=== PATIENT | female | born 1960 | race Caucasian/White ===

== ENCOUNTER → 2019-04-24 08:12 | Outpatient (CLI) | payer OTHER, BC, SELFPAY ==
--- NOTE | 2019-04-24 08:16 | BI_ITS ---
MAMMOGRAPHY - BILATERAL SCREENING REASON FOR EXAM: Female, 58 years old. Routine annual screening examination. PERTINENT HISTORY: Non-contributory. History of remote bilateral breast aspirations. TECHNIQUE: Digital bilateral breast jose f (3D mammographic acquisition) in the CC and MLO projections. 2-D mediolateral oblique (MLO) and craniocaudad (CC) views of both breasts were obtained. CAD: Full Field Digital Mammography with Computer Added Detection was performed. COMPARISON: Comparison is made with prior study dated April 10, 2016 and February 19, 2015. FINDINGS: Breast Composition: The breasts are extremely dense, which lowers the sensitivity of mammography. There are no dominant masses or suspicious calcifications. No other significant abnormalities are identified. There has been no significant change since the prior study. BI/SCREEN MAMM (CAD) W/JOSE F BILAT IMPRESSION: Stable bilateral screening mammogram. Yearly follow-up mammogram recommended. (A) ASSESSMENT CATEGORY: BIRADS Category 1: Negative. A letter regarding these results will be sent to the patient by the facility within 30 days. Approximately 10% of breast cancers are not detected by mammography. A normal mammogram should not delay biopsy of a clinically suspicious abnormality. [id number] Electronically Signed: Cricket Rinaldi, at 9:21 EDT , Service support ,
== END ==
PROVIDERS: Family Provider Family Medicine; PCP Family Medicine; Referring Provider Obstetrics & Gynecology; Visit Provider Obstetrics & Gynecology
DX: Z12.31 Encounter for screening mammogram for malignant neoplasm of breast (principal)
CPT/HCPCS: 77063; 77067

== ENCOUNTER → 2020-09-03 | Outpatient (CLI) | payer OTHER, BC, SELFPAY ==
[2019-10-16 09:49] VITALS: BMI 16.4
--- NOTE | 2020-09-03 07:38 | BI_ITS ---
MAMMOGRAPHY - BILATERAL SCREENING REASON FOR EXAM: Female, 60 years old. Routine annual screening examination. PERTINENT HISTORY: Non-contributory. TECHNIQUE: Digital bilateral breast jose f (3D mammographic acquisition) in the CC and MLO projections. 2-D mediolateral oblique (MLO) and craniocaudad (CC) views of both breasts were obtained. CAD: Full Field Digital Mammography with Computer Added Detection was performed. COMPARISON: Comparison is made with prior study dated 04/24/2019 and 04/10/2016. FINDINGS: Breast Composition: The breasts are extremely dense, which lowers the sensitivity of mammography. There are no dominant masses or suspicious calcifications. No other significant abnormalities are identified. There has been no significant change since the prior study. BI/SCREEN MAMM (CAD) W/JOSE F BILAT IMPRESSION: Stable bilateral screening mammogram. Yearly follow-up mammogram recommended. (A) ASSESSMENT CATEGORY: BIRADS Category 1: Negative. A letter regarding these results will be sent to the patient by the facility within 30 days. Approximately 10% of breast cancers are not detected by mammography. A normal mammogram should not delay biopsy of a clinically suspicious abnormality. [id number] Electronically Signed: Cricket Rinaldi, at 8:46 EDT , Service support ,
== END | disposition home or self-care (01) ==
LOC: OPBI 07:38
PROVIDERS: PCP Family Medicine; Referring Provider Obstetrics & Gynecology; Visit Provider Obstetrics & Gynecology
DX: Z12.31 Encounter for screening mammogram for malignant neoplasm of breast (principal)
CPT/HCPCS: 77063; 77067

== ENCOUNTER → 2021-09-05 07:31 | Outpatient (CLI) | payer OTHER, BC, SELFPAY ==
--- NOTE | 2021-09-05 07:35 | BI_ITS ---
MAMMOGRAPHY - BILATERAL SCREENING REASON FOR EXAM: Female, 61 years old. Routine annual screening examination. PERTINENT HISTORY: Non-contributory. TECHNIQUE: Digital bilateral breast jose f (3D mammographic acquisition) in the CC and MLO projections. 2-D mediolateral oblique (MLO) and craniocaudad (CC) views of both breasts were obtained. CAD: Full Field Digital Mammography with Computer Added Detection was performed. COMPARISON: Comparison is made with prior examination dated 09/03/2020 and 04/24/2019. FINDINGS: Breast Composition: The breasts are extremely dense, which lowers the sensitivity of mammography. There are no dominant masses or suspicious calcifications. No other significant abnormalities are identified. There has been no significant change since the prior study. BI/SCRN MAMM (CAD)W/JOSE F BILAT IMPRESSION: Stable bilateral screening mammogram. Yearly follow-up mammogram recommended. (A) ASSESSMENT CATEGORY: BIRADS Category 1: Negative. A letter regarding these results will be sent to the patient by the facility within 30 days. Approximately 10% of breast cancers are not detected by mammography. A normal mammogram should not delay biopsy of a clinically suspicious abnormality. [id number] Electronically Signed: Cricket Rinaldi MD at 10:03 EDT , Service support ,
== END ==
PROVIDERS: PCP Family Medicine; Referring Provider Obstetrics & Gynecology; Visit Provider Obstetrics & Gynecology
DX: Z12.31 Encounter for screening mammogram for malignant neoplasm of breast (principal)
CPT/HCPCS: 77063; 77067

== ENCOUNTER → 2022-12-01 | Outpatient (CLI) | payer OTHER, BC, SELFPAY ==
--- NOTE | 2022-12-01 07:45 | BI_ITS ---
MAMMOGRAPHY - BILATERAL SCREENING REASON FOR EXAM: Female, 62 years old. Routine annual screening examination. PERTINENT HISTORY: Non-contributory. History of prior bilateral breast aspirations. TECHNIQUE: Digital bilateral breast jose f (3D mammographic acquisition) in the CC and MLO projections. 2-D mediolateral oblique (MLO) and craniocaudad (CC) views of both breasts were obtained. CAD: Full Field Digital Mammography with Computer Added Detection was performed. COMPARISON: Comparison is made with prior study dated 09/05/2021 and 09/03/2020. FINDINGS: Breast Composition: The breasts are extremely dense, which lowers the sensitivity of mammography. There are no dominant masses or suspicious calcifications. No other significant abnormalities are identified. There has been no significant change since the prior study. BI/SCRN MAMM (CAD)W/JOSE F BILAT IMPRESSION: Stable bilateral screening mammogram. Yearly follow-up mammogram recommended. (A) ASSESSMENT CATEGORY: BIRADS Category 1: Negative. A letter regarding these results will be sent to the patient by the facility within 30 days. Approximately 10% of breast cancers are not detected by mammography. A normal mammogram should not delay biopsy of a clinically suspicious abnormality. [id number] Electronically Signed: Cricket Rinaldi MD at 9:14 EST ,
== END | disposition home or self-care (01) ==
LOC: OPBI 07:43
PROVIDERS: PCP Physician Assistant; Referring Provider Obstetrics & Gynecology; Visit Provider Obstetrics & Gynecology
DX: Z12.31 Encounter for screening mammogram for malignant neoplasm of breast (principal)
CPT/HCPCS: 77063; 77067

== ENCOUNTER 2023-04-30 06:25 | Day surgery (SDC) | payer OTHER, BC, SELFPAY ==
[2023-04-30] VITALS (7 sets, daily range): BP systolic 99–131; BP diastolic 65–91; PULSE 70–119; RESP 14–18; TEMP 36.3–37; O2SAT 96–100; BMI 15.7
[2023-04-30] MEDS: Lactated Ringers 1,000 ML 15 ML IV (06:51)
--- NOTE | 2023-04-30 06:56 | PCM.HP.BLA ---
History and Physical Date of Admission: 04/30/23 Visit Reasons:?COLONOSCOPY Chief Complaint: colonoscopy consult Allergies Sulfa (Sulfonamide Antibiotics) Allergy (Mild, Verified 03/04/23 08:22) felt warm, itchy PFSH Medical History? Chronic diarrhea COVID-19 Fibrocystic breast history of bowel obstruction Right arm fracture Surgical History? S/P abdominal hysterectomy s/p ileus removed S/P tonsillectomy Family History? Mother Parkinsons diseaseGrandfather Kidney disease Social History? Smoking Status:? Never smoker alcohol intake:? never substance use type:? does not use caffeine:? No what type of physical activity do you participate in:? walking frequency:? 5-6 times per week seatbelt use:? always do you feel safe at home:? Yes additional social history:? 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 ? HPI HPI HPI: 62-year-old female presents to discuss screening colonoscopy.? She has chronic diarrhea secondary to a small bowel obstruction with subsequent resection of small bowel.? She is also noted a previous history of a hysterectomy.? Fortunately she has no symptoms.? No abdominal pain.? No bright red blood per rectum or melena.? She continues to have diarrhea and she has to adjust her diet to accommodate.? She is always been low in weight and she has to work hard to keep weight on.? She otherwise feels stable.? She did have COVID last year and but feels that most of her symptoms have resolved although she does keep her head of bed slightly elevated.? No history of DVT. ROS General General: No weight change, appetite, fatigue, colon cancer, breast cancer or weakness HEENT HEENT: No difficulty swallowing, eye injury, eye surgery, swollen glands or hoarseness Endo Endocrine: No thyroid disease, diabetes mellitus, thyroid cancer, Hair loss, heat intolerance or cold intolerance Skin Skin: No rash or changing moles Breast Breast: No left breast lump, right breast lump, nipple discharge, breast pain, abnormal mammogram, abnormal US or breast enlargement Musc Musculoskeletal: No back problems, arthritis, rheumatoid arthritis, gout or joint pain Cardio Cardiovascular: No murmur, pacemaker, heart disease, atrial fibrillation, high blood pressure, heart attack, heart stent, palpitations, shortness of breat with exertion or chest pain Psych Psychiatric: No depression, anxiety or hearing voices Resp Respiratory: No shortness of breath, No sleep apnea, No cough, No COPD, No asthma, No emphysema and No wheezing Gastro Gastrointestinal: No abdominal pain, No nausea or vomiting, No diarrhea, No constipation, No blood in stool, No acid reflux, Yes hemorrhoids, No ulcers, No gallbladder problem and No black,tarry stools Matt Hematologic: No blood thinners, No blood disorders, No bleeding, No anemia and No blood clots Neuro Neurologic: No system reviewed and no additional complaints, except as documented, No as per HPI, No abnormal gait, No abnormal hearing, No abnormal movements, No abnormal speech, No behavioral changes, No burning sensations, No confusion, No convulsions, No disequilibrium, No dizziness, No localized weakness, No frequent falls, No headache(s), No lack of coordination, No loss of vision, No memory loss, No numbness, No other visual disturbances, No radicular pain, No restless legs, No sensory deficit, No syncope, No tingling, No tremor(s), No weakness and No other Exam Const General: cooperative, healthy appearing, comfortable and no acute distress Nutritional Appearance: underweight [facility] Head: normal to inspection Eyes General: appearance normal, both eyes and all related structures Resp Effort & Inspection: normal respiratory effort Auscultation: clear to auscultation bilaterally Cardio Rate: regular rate Rhythm: regular rhythm GI Palpation: soft and no hepatosplenomegaly Musc Cervical Spine: normal cervical lordosis Skin General: no rashes or lesions noted Neuro General: patient alert, patient awake and patient oriented x3 Assessment and Plan Assessment and Plan (1) Screening for intestinal cancer: ?Status:?Acute ?Plan: 62-year-old female is due for screening colonoscopy.? 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 She does have difficulty keeping weight in place.? She does take medication Lomotil to help slow her intestine.? When she stops that medication and takes her bowel prep she does have significant diarrhea results.? We will therefore limit her to 1 day clear liquids and a 1 day bowel prep.? We will utilize monitored anesthesia care.? She is extraordinarily slender and likely will be a more challenging colonoscopy due to tortuosity.? She is aware of technique, benefit, risk, alternatives.? We will schedule procedure at her discretion.? I appreciate the ongoing option of assisting with her surgical care. Copy: ERENDIRA Waller M.D., F.A.C.S I have examined the patient and the H&P has been reviewed. There are no clinical changes since date of exam. Warner Gutierrez M.D., F.A.C.S.
--- NOTE | 2023-04-30 08:04 | OP.CCLET_ITS ---
04/30/2023 Germania Cordero Re : Colonoscopy procedure for Susana Zavaleta Dear Gil This procedure was performed on Sunday, April 30, 2023. My impressions and recommendations are as follows: Impressions : - Decreased sphincter tone, non-thrombosed external hemorrhoids, non-thrombosed internal hemorrhoids and internal hemorrhoids that prolapse with straining, but spontaneously regress to the resting position (Grade II) found on digital rectal exam. - Patent end-to-end ileo-colonic anastomosis, characterized by healthy appearing mucosa. - The examination was otherwise normal. - No specimens collected. Recommendations : - Discharge patient to home. - Resume previous diet. - Continue present medications. - Repeat colonoscopy in 10 years for screening purposes. My findings are described in the full procedure note, which is enclosed. If I can be of further assistance, please feel free to contact me at Doctor phone number(s): Work: . Sincerely, Warner Gutierrez MD 04/30/2023 8:04:02 AM This report has been signed electronically.
--- NOTE | 2023-04-30 08:04 | OP.COLON_ITS ---
Patient Name: Susana Zavaleta Procedure Date: 04/30/2023 7:28 AM Date of : 1960 Age: 62 Procedure: Colonoscopy Indications: Screening for colorectal malignant neoplasm Providers: Warner Gutierrez MD Referring MD: Warner Gutierrez MD Medicines: See the Anesthesia note for documentation of the administered medications Patient Profile: Last Colonoscopy: 10 years ago. Complications: No immediate complications. Procedure: Pre-Anesthesia Assessment: - Prior to the procedure, a History and Physical was performed, and patient medications and allergies were reviewed. The patient's tolerance of previous anesthesia was also reviewed. The risks and benefits of the procedure and the sedation options and risks were discussed with the patient. All questions were answered, and informed consent was obtained. Prior Anticoagulants: The patient has taken no previous anticoagulant or antiplatelet agents. ASA Grade Assessment: II - A patient with mild systemic disease. After reviewing the risks and benefits, the patient was deemed in satisfactory condition to undergo the procedure. After I obtained informed consent, the scope was passed under direct vision. Throughout the procedure, the patient's blood pressure, pulse, and oxygen saturations were monitored continuously. The adult colonoscope was introduced through the anus and advanced to the ileocolonic anastomosis. The patient tolerated the procedure well. The quality of the bowel preparation was good. Ileocolonic anastomosis were photographed. Scope In: 7:36:27 AM Scope Withdrawal Time 0 hours 5 minutes 59 seconds Scope Out: 7:59:27 AM Total Procedure Duration Time 0 hours 23 minutes 0 seconds Findings: The digital rectal exam findings include decreased sphincter tone, non-thrombosed external hemorrhoids, non-thrombosed internal hemorrhoids and internal hemorrhoids that prolapse with straining, but spontaneously regress to the resting position (Grade II). There was evidence of a prior end-to-end ileo-colonic anastomosis in the proximal ascending colon. This was patent and was characterized by healthy appearing mucosa. The exam was otherwise without abnormality. Impression: - Decreased sphincter tone, non-thrombosed external hemorrhoids, non-thrombosed internal hemorrhoids and internal hemorrhoids that prolapse with straining, but spontaneously regress to the resting position (Grade II) found on digital rectal exam. - Patent end-to-end ileo-colonic anastomosis, characterized by healthy appearing mucosa. - The examination was otherwise normal. - No specimens collected. Recommendation: - Discharge patient to home. - Resume previous diet. - Continue present medications. - Repeat colonoscopy in 10 years for screening purposes. Procedure Code(s): --- Professional --- 92875, Colonoscopy, flexible; diagnostic, including collection of specimen(s) by brushing or washing, when performed (separate procedure) Diagnosis Code(s): --- Professional --- Z12.11, Encounter for screening for malignant neoplasm of colon K62.89, Other specified diseases of anus and rectum Z98.0, Intestinal bypass and anastomosis status K64.1, Second degree hemorrhoids K64.4, Residual hemorrhoidal skin tags CPT copyright 2017 [employer]. All rights reserved. The codes documented in this report are preliminary and upon national recruiter review may be revised to meet current compliance requirements. Warner Gutierrez MD 04/30/2023 8:04:02 AM This report has been signed electronically. Number of Addenda: 0 Note Initiated On: 04/30/2023 7:28 AM
== END 2023-04-30 09:22 | disposition home or self-care (01) ==
LOC: EN 06:26 → AC 06:27
PROVIDERS: PCP Physician Assistant; Referring Provider Physician Assistant; Visit Provider Surgery
PROC: 0DJD8ZZ Inspection of Lower Intestinal Tract, Via Natural or Artificial Opening Endoscopic (ICD-10-PCS; CPT 45378; principal; 2023-04-30 07:25)
DX: Z12.11 Encounter for screening for malignant neoplasm of colon (principal); K64.4 Residual hemorrhoidal skin tags; K64.1 Second degree hemorrhoids; Z98.0 Intestinal bypass and anastomosis status
CPT/HCPCS: 45378; J7120; J2405

== ENCOUNTER → 2023-12-02 | Outpatient (CLI) | payer OTHER, BC, SELFPAY ==
--- NOTE | 2023-12-02 07:51 | BI_ITS ---
MAMMOGRAPHY - BILATERAL SCREENING REASON FOR EXAM: Female, 63 years old. Routine annual screening examination. PERTINENT HISTORY: Non-contributory. History of prior bilateral breast aspirations. TECHNIQUE: Digital bilateral breast jose f (3D mammographic acquisition) in the CC and MLO projections. 2-D mediolateral oblique (MLO) and craniocaudad (CC) views of both breasts were obtained. CAD: Full Field Digital Mammography with Computer Added Detection was performed. COMPARISON: Comparison is made with prior study dated May 31, 2023 and September 05, 2021. FINDINGS: Breast Composition: The breasts are extremely dense, which lowers the sensitivity of mammography. There are no dominant masses or suspicious calcifications. Stable calcifications in the upper outer quadrant of the left breast. No other significant abnormalities are identified. There has been no significant change since the prior study. BI/SCRN MAMM (CAD)W/JOSE F BILAT IMPRESSION: Stable bilateral screening mammogram. Yearly follow-up mammogram recommended. (A) ASSESSMENT CATEGORY: BIRADS Category 2: Benign. A letter regarding these results will be sent to the patient by the facility within 30 days. Approximately 10% of breast cancers are not detected by mammography. A normal mammogram should not delay biopsy of a clinically suspicious abnormality. [id number] Electronically Signed: Cricket Rinaldi MD at 8:59 EST ,
--- OUTSIDE RECORDS SUMMARY | 2023-12-02 08:14 | XMS RPT_ITS | CCD ---
Author Name Unknown Address [address] [place] [address] Organization [facility] Care Team Providers Care Sole Sewer Hand Name Role Phone Germania Cordero PA-C Primary Care Provider [phone] Germania CORDERO Primary Care Unavailable Germania CORDERO Referring Unavailable Germania CORDERO Attending Germania Javier Primary Care Unavailable Germania CORDERO Referring Unavailable Germania CORDERO Attending Unavailable Germania CORDERO Primary Care Unavailable JAZMÍN VILLASEÑOR Referring Unavailable Germania CORDERO Primary Care Unavailable JAZMÍN VILLASEÑOR Attending Unavailable Germania Cordero PA-C Primary Care Provider [phone] Allergies Allergy Classification Reported Allergen(s) Allergy Type Date of Onset Reaction(s) Facility (16 sources) Sulfonamides (Antibiotic); Translations: [SULFA (SULFONAMIDE ANTIBIOTICS)] Propensity to adverse reactions 5 [facility] Work Phone: Medications Current Medications Medication Drug Class(es) Dates Sig (Normalized) Sig (Original) atropine sulfate 0.025 mg / diphenoxylate hydrochloride 2.5 mg oral tablet (19 sources) Anticholinergic, Cholinergic Muscarinic Antagonist, Antidiarrheal Start: 12-10-2021 End: 03-21-2024 take 1 tablet by mouth once at bedtime diphenoxylate-at ropine (LOMOTIL) 2.5-0.025 mg per tablet Indications: History of surgical removal of terminal ileum TAKE ONE TABLET BY MOUTH BEFORE MEALS AND AT BEDTIME 360 tablet 5 09/23/2023 03/21/2024 Active Completed/Discontinued Medications Medication Drug Class(es) Dates Sig (Normalized) Sig (Original) Blood Pressure Monitor (15 sources) Start: 11-18-2021 Blood Pressure Monitor 1 Each once daily as needed. 1 Each 0 11/18/2021 Active Problems Active Problems Problem Classification Problem Date Documented Da te Episodic/Chronic Crushing injury or internal injury (1 source) Injury of ileum; Translations: [Unspecified injury of other part of small intestine, subsequent encounter] Episodic Esophageal disorders (18 sources) Gastroesophageal reflux disease; Translations: [Gastro-esophageal reflux disease without esophagitis] Onset: 2 01-15-2012 Chronic Esophageal disorders (1 source) Esophageal disorders; Translations: [Gastroesophageal reflux disease with esophagitis without hemorrhage] Onset: 2 Nutritional deficiencies (1 source) Vitamin D deficiency; Translations: [Vitamin D deficiency, unspecified] 07-15-2023 Chronic Osteoporosis (20 sources) Osteoporosis; Translations: [Other osteoporosis without current pathological fracture] Onset: 2 12-17-2021 Chronic Other circulatory disease (1 source) Elevated blood-pressure reading without diagnosis of hypertension; Translations: [Elevated blood-pressure reading, without diagnosis of hypertension] Episodic Other diseases of veins and lymphatics (1 source) Venous insufficiency (chronic) (peripheral); Translations: [Venous (peripheral) insufficiency] Onset: 3 Episodic Other gastrointestinal disorders (1 source) Irritable bowel syndrome with diarrhea; Translations: [Irritable bowel syndrome with diarrhea] Chronic Other gastrointestinal disorders (1 source) Intestinal malabsorption, unspecified; Translations: [Vitamin B12 deficiency due to intestinal malabsorption] Onset: 2 Chronic Other gastrointestinal disorders (1 source) Functional diarrhea; Translations: [Functional diarrhea] Episodic Other injuries and conditions due to external causes (1 source) Injury of right hand; Translations: [Unspecified injury of right wrist, hand and finger(s), initial encounter] Episodic Other screening for suspected conditions (not mental disorders or infectious disease) (2 sources) Patient encounter status; Translations: [Encounter for screening mammogram for malignant neoplasm of breast] Episodic Residual codes; unclassified (20 sources) History of excision of intestinal structure; Translations: [Other specified postprocedural states] Onset: 1 Episodic Superficial injury; contusion (1 source) Right wrist contusion; Translations: [Contusion of right wrist, initial encounter] Episodic Past or Other Problems Problem Classification Problem Date Documented Date Episodic/Chronic E Codes: Fall (2 sources) Fall; Translations: [Unspecified fall, initial encounter] Onset: 12-03-2022 Episodic Noninfectious gastroenteritis (19 sources) Chronic diarrhea; Translations: [Noninfective gastroenteritis and colitis, unspecified] Onset: 06-10-2021 06-10-2021 Episodic Nutritional deficiencies (18 sources) Cobalamin deficiency; Translations: [Deficiency of other specified B group vitamins] Onset: 06-29-2022 Episodic Other diseases of veins and lymphatics (16 sources) Peripheral venous insufficiency; Translations: [Venous insufficiency (chronic) (peripheral)] Onset: 07-14-2006 07-14-2006 Episodic Other injuries and conditions due to external causes (1 source) Unspecified injury of right wrist, hand and finger(s), initial encounter; Translations: [Hand injury, right, initial encounter] Onset: 12-03-2022 Episodic Other nutritional; endocrine; and metabolic disorders (1 source) Weight loss; Translations: [Abnormal weight loss] Onset: 01-23-2009 01-23-2009 Episodic Other nutritional; endocrine; and metabolic disorders (18 sources) Underweight; Translations: [Underweight] Onset: 05-01-2022 Episodic Other nutritional; endocrine; and metabolic disorders (1 source) Underweight; Translations: [Underweight] Onset: 05-01-2022 Episodic Residual codes; unclassified (1 source) Other specified postprocedural states; Translations: [History of surgical removal of terminal ileum] Onset: 06-10-2021 Episodic Residual codes; unclassified (1 source) Acquired absence of other specified parts of digestive tract; Translations: [History of surgical removal of terminal ileum] Onset: 06-10-2021 Episodic Results Test Name Value Interpretation Reference Range Facil ity Vital Signs Date Time Vital Sign Value Performing Clinician Sarahyi aleksey 07-15-2023 08:08-0400 Body temperature 98.29 [degF] ASHLEIGH Cordero PA-C Work Phone: [facility] 07-15-2023 08:08-0400 Body weight 47.63 kg ASHLEIGH Cordero PA-C Work Phone: [facility] 07-15-2023 08:08-0400 Diastolic blood pressure 62 mm[Hg] ASHLEIGH Cordero PA-C Work Phone: [facility] 07-15-2023 08:08-0400 Heart rate 78 /min NA Cordero PA-C Work Phone: [facility] 07-15-2023 08:08-0400 SaO2% (BldA) [Mass fraction] 99 % NA Cordero PA-C Work Phone: [facility] 07-15-2023 08:08-0400 Systolic blood pressure 112 mm[Hg] NA Cordero PA-C Work Phone: [facility] 01-11-2023 08:00-0500 Body weight 47.63 kg NA Cordero PA-C Work Phone: [facility] 01-11-2023 08:00-0500 Diastolic blood pressure 74 mm[Hg] NA Cordero PA-C Work Phone: [facility] 01-11-2023 08:00-0500 Heart rate 74 /min NA Cordero PA-C Work Phone: [facility] 01-11-2023 08:00-0500 Respiratory rate 16 /min NA Cordero PA-C Work Phone: [facility] 01-11-2023 08:00-0500 SaO2% (BldA) [Mass fraction] 99 % NA Cordero PA-C Work Phone: [facility] 01-11-2023 08:00-0500 Systolic blood pressure 128 mm[Hg] NA Cordero PA-C Work Phone: [facility] 12-03-2022 11:33-0500 Body weight 48.08 kg Jazmín Villaseñor MD Work Phone: [facility] 12-03-2022 11:33-0500 Diastolic blood pressure 72 mm[Hg] Jazmín Villaseñor MD Work Phone: [facility] 12-03-2022 11:33-0500 Heart rate 70 /min Jazmín Villaseñor MD Work Phone: [facility] 12-03-2022 11:33-0500 Respiratory rate 16 /min Jazmín Villaseñor MD Work Phone: [facility] 12-03-2022 11:33-0500 SaO2% (BldA) [Mass fraction] 100 % Jazmín Villaseñor MD Work Phone: [facility] 12-03-2022 11:33-0500 Systolic blood pressure 128 mm[Hg] Jazmín Villaseñor MD Work Phone: [facility] 07-14-2022 08:49-0400 Body temperature 98.71 [degF] NA Cordero PA-C Work Phone: [facility] 07-14-2022 08:49-0400 Body weight 47.54 kg NA Cordero PA-C Work Phone: [facility] 07-14-2022 08:49-0400 Diastolic blood pressure 78 mm[Hg] NA Cordero PA-C Work Phone: [facility] 07-14-2022 08:49-0400 Heart rate 78 /min NA Cordero PA-C Work Phone: [facility] 07-14-2022 08:49-0400 Respiratory rate 18 /min NA Cordero PA-C Work Phone: [facility] 07-14-2022 08:49-0400 SaO2% (BldA) [Mass fraction] 97 % NA Cordero PA-C Work Phone: [facility] 07-14-2022 08:49-0400 Systolic blood pressure 142 mm[Hg] NA Cordero PA-C Work Phone: [facility] 05-01-2022 09:24-0400 Body height 169.4 cm Maxim Singh MD Work Phone: [facility] 05-01-2022 09:24-0400 Body weight 47.63 kg Maxim Singh MD Work Phone: [facility] 05-01-2022 09:24-0400 Diastolic blood pressure 75 mm[Hg] Maxim Singh MD Work Phone: [facility] 05-01-2022 09:24-0400 Heart rate 68 /min Maxim Singh MD Work Phone: [facility] 05-01-2022 09:24-0400 Respiratory rate 16 /min Maxim Singh MD Work Phone: [facility] 05-01-2022 09:24-0400 SaO2% (BldA) [Mass fraction] 100 % Maxim Singh MD Work Phone: [facility] 05-01-2022 09:24-0400 Systolic blood pressure 158 mm[Hg] Maxim Singh MD Work Phone: [facility] Encounters Encounter Date Encounter Type Care Provider Facility Start: 09-22-2023 Judy Mckeon Sea on PA-C Work Phone: [facility] Procedures Date Procedure Procedure Detail Performing Clinician Start: 12-01-2022 Mammography Jazmín Hood MD Work Phone: Start: 07-14-2022 Adult depression scr eening assessment NA Cordero PA-C Work Phone: Start: 09-05-2021 Mammography NA Cordero PA-C Work Phone: Start: 06-10-2021 Adult depression scr eening assessment NA Cordero PA-C Work Phone: Start: 07-01-2012 Colonoscopy NA Cordero PA-C Work Phone: Start: 07-21-2006 Lipid 1996 panel - S alice or Plasma NA Cordero PA-C Work Phone: Plan of Treatment Date Care Activity Detail Author Start: 12-12-2028 Urine microalbumin profile [facility] Start: 06-25-2025 DIABETES SCREEN DIABETES SCREEN [facility] Start: 06-25-2025 Diabetes Screening Diabetes Screenin g [facility] Start: 05-07-2024 Influenza vaccination [facility] Immunizations Immunization Date Immunization Notes Care Provider Fa tanya 12-12-2018 tetanus toxoid, redu vinny diphtheria toxoid, and acellular pertussis vaccine, adsorbed NA Cordero PA-C Work Phone: [facility] 12-12-2018 influenza virus vacc ine, unspecified formulation NA Cordero PA-C Work Phone: [facility] 11-15-2003 diphtheria and tetan us toxoids, adsorbed for pediatric use NA Gil DEBBIEFreyaTrey Work Phone: [facility] Payers Date Payer Category Payer Private Health Insurance EHP AET NA EHP PLUS STAFF/NON STAFF / EHP Plus [facility] [id number] 2021-Present [address] [place] [address] PPO [id number] 2021 Private Health Insurance [id number] 2021 Unknown [id number] 2018 Unknown [employer] PPO OOS [id number] 2018-Present [phone] [address] [place] [address] PPO [id number] 2018 Unknown [id number] 2003 Unknown [id number] Social History Date Type Detail Facility Start: 10-02-2011 Tobacco smoking stat [facility] Never smoked tobacco [facility] Work Phone: Start: 11-18-2021 End: 07-15-2023 Alcohol intake Current non-drinker of alcohol (finding) [facility] Start: 1960 Sex Assigned At Not on file [facility] Start: 10-02-2011 Tobacco use and exposure Smokeless tobacco non-user [facility] Start: 06-12-2022 End: 07-14-2022 Exposure to SARS-CoV-2 (event) Not sure [facility] Start: 12-01-2022 End: 07-15-2023 History of Social function [facility] Start: 12-01-2022 End: 07-15-2023 Tobacco use panel [facility] Adult Depression Screening Assessment 0 [facility] Clinical Notes 07-01-2012 to 09-23-2023 Telephone Encounter - Cassidy Rivera LPN - 09/23/2023 8:24 AM ESTTelephone Encounter - Peri Castorena - 09/22/2023 3:02 PM Germania Kat PA-C - 07/15/2023 8:00 AM EDT Note Date & Type Note Facility 09-23-2023 Miscellaneous Notes Patient has been identified by name and date of : Yes, Provider LAURO Waller Date 09/23/23 Time 8:30 am Patient phones for refill(s): Requested Prescriptions Pending Prescriptions Disp Refills diphenoxylate-atropine (LOMOTIL) 2.5-0.025 mg per tablet 360 tablet 5 Sig: TAKE ONE TABLET BY MOUTH BEFORE MEALS AND AT BEDTIME Date of last office visit in primary care: 07/15/23 Date of next office visit in primary care: 07/17/24 Last 2 Encounter Wt Readings: Date: Wt: 07/15/2023 47.6 kg (105 lb) 01/11/2023 47.6 kg (105 lb) Previous labs/tests for medication: Not applicable Thank you. Cassidy Rivera LPN. Patient has been identified by name and date of : Yes Requested Prescriptions Pending Prescriptions Disp Refills diphenoxylate-atropine (LOMOTIL) 2.5-0.025 mg per tablet 360 tablet 5 Sig: TAKE ONE TABLET BY MOUTH BEFORE MEALS AND AT BEDTIME RX INSTRUCTIONS: Patient aware RX will be sent to pharmacy. No need to notify patient. Peri Hicks documented in this encounter [facility] 07-15-2023 Note HNO ID: [id number] Author: Germania Cordero PA-C Service: ? Author Type: Physician Pathology Secretary/Transcriptionist Type: Progress Notes Filed: 07/15/2023 12:37 PM Note Text: 62 year old female with c/o here for routine History of surgical removal of terminal ileum (primary encounter diagnosis) Vitamin b12 deficiency Underweight Chronic diarrhea Gastroesophageal reflux disease with esophagitis without hemorrhage Current medication: Lomotil-atropine 2.5-0.25mg 1 tab before meals and HS B12 1000u daily a few times a week Current symptoms: normal for me , nothing unusual. Last Mg level if on PPI chronically: N/A. Heartburn is controlled: Yes. Dysphagia: No. Bloody or black stools: No. No rectal bleeding. Bowel changes: 75-80% fairly solid if follows rules . Occasional diarrhea, no incontinence. Last EGD and/or colonoscopy: Records retrieved and reviewed from [facility] 04/30/[address] Howie Gutierrez: grade II non-thrombosed IH, EH, end-end anastamosis WNL. No specimens. 05/24/2012 barium swallow WNL. Component Latest Ref Rng AND Units 06/25/2022 Protein, Total 6.3 - 8.0 g/dL 7.0 Albumin 3.9 - 4.9 g/dL 4.7 Calcium 8.5 - 10.2 mg/dL 9.4 Bilirubin, Total 0.2 - 1.3 mg/dL 0.4 Alkaline Phosphatase 34 - 123 U/L 93 AST 13 - 35 U/L 20 ALT 7 - 38 U/L 12 Glucose 74 - 99 mg/dL 145 (H) BUN 7 - 21 mg/dL 21 Creatinine 0.58 - 0.96 mg/dL 0.82 Sodium 136 - 144 mmol/L 140 Potassium 3.7 - 5.1 mmol/L 3.7 Chloride 97 - 105 mmol/L 102 CO2 22 - 30 mmol/L 24 Anion Gap 9 - 18 mmol/L 14 eGFR >=60 mL/min/1.73mA? 80 Vitamin D 25 Hydroxy 31.0 - 80.0 ng/mL 50.7 PTH, Intact 15 - 65 pg/mL 57 Vitamin B12 232 - 1,245 pg/mL 237 TSH 0.270 - 4.200 mIU/L 1.780 Free T4 0.9 - 1.7 ng/dL 1.1 Venous (peripheral) insufficiency Stands all day long Swelling by end of the day. Walks on breaks. Osteoporosis 05/01/[address] Singh: patient declined Forteo, has reservations about medication side effects. Has also talked about Prolia. FAMILY HISTORY Problem Relation Age of Onset Osteoporosis Mother other (parkinsons) Mother other (renal disease) Maternal Grandfather PAST MEDICAL HISTORY Diagnosis Date Diarrhea Dyskinesia of esophagus Esophageal reflux History of surgical removal of terminal ileum 06/10/2021 Loss of weight PAST SURGICAL HISTORY Procedure Laterality Date BREAST RIGHT FINE NEEDLE ASPIRATION 09/02/05 Right x 3 cysts COLONOSCOPY FLX DX W/COLLJ SPEC WHEN PFRMD 07/01/2012 Colonoscopy repeat 10 years ENTRC RESCJ SMALL INTESTINE 1 RESCJ AND ANAST 10/14/06 ESOPHAGOGASTRODUODENOSCOPY TRANSORAL DIAGNOSTIC 01/23/2009 EGD ESOPHAGOGASTRODUODENOSCOPY TRANSORAL DIAGNOSTIC 07/01/2012 EGD INSJ NON-TUNNELED CENTRAL VENOUS CATH AGE 3 YR/> 10/14/06 TONSILLECTOMY PRIMARY/SECONDARY Tonsillectomy TOTAL ABDOMINAL HYSTERECT W/WO RMVL TUBE OVARY Hysterectomy, appendectomy(ovaries remain) Social History Tobacco Use Smoking status: Never Smokeless tobacco: Never Substance Use Topics Alcohol use: No Drug use: No ACTIVE PROBLEM LIST Unspecified Venous (Peripheral) Insufficiency Gerd (Gastroesophageal Reflux Disease) History of Surgical Removal of Terminal Ileum Chronic Diarrhea Osteoporosis Underweight Vitamin B12 deficiency Current Outpatient Medications Medication Sig Dispense Refill diphenoxylate-atropine (LOMOTIL) 2.5-0.025 mg per tablet TAKE ONE TABLET BY MOUTH BEFORE MEALS AND AT BEDTIME 360 tablet 5 cyanocobalamin (VITAMIN B-12) 1,000 mcg tab Take 1 tablet by mouth once daily. cholecalciferol (VITAMIN D3) 1,000 unit tab tablet Take 1 tablet by mouth once daily. Blood Pressure Monitor 1 Each once daily as needed. 1 Each 0 THERAPEUTIC MULTIVITAMIN TAB Take one(1) tablet daily. 0 No current facility-administered medications for this visit. LIPID SCREEN due on 07/21/2011 COLORECTAL CANCER SCREENING due on 07/01/2022 DEPRESSION ASSESSMENT Never done INFLUENZA(1) due on 07/09/2023 EXAM: BP 112/62 Pulse 78 Temp 36.8 ?C (98.3 ?F) (Tympanic) Wt 47.6 kg (105 lb) SpO2 99% BMI 16.60 kg/m? Pleasant thin adul woman in no acute distress. Alert and oriented all spheres. Normal affect and cognition. Speech normal. No deficits to learning or comprehension. Skin warm, dry, pink to lips and nailbeds. Normal turgor. Respirations regular and unlabored. HEENT: NCAT. No scleral icterus or conjunctival injection. TM's clear. Nose and oropharynx free from injection or lesion. Oral membranes moist and pink. No cervical lymph nodes. Thyroid non-tender, no masses, or enlargement. Carotids pulses 2+/4+ without bruits. No JVD with HOB at 30 degrees. Chest is normal shape. Lungs are clear to all moya with good air exchange through out. HRRR without murmur or gallop. No lifts, heaves, or rubs. Abdomen: active bowel sounds throughout, soft, nontender, no masses or organomegaly. No CVAT. Extrem: no clubbing or cyanosis. Edema: none. Extremities are warm and (more content not included)... [facility] 07-15-2023 History of Presen t illness Narrative 62 year old female with c/o here for routine History of surgical removal of terminal ileum (primary encounter diagnosis) Vitamin b12 deficiency Underweight Chronic diarrhea Gastroesophageal reflux disease with esophagitis without hemorrhage Current medication: Lomotil-atropine 2.5-0.25mg 1 tab before meals and HS B12 1000u daily a few times a week Current symptoms: normal for me , nothing unusual. Last Mg level if on PPI chronically: N/A. Heartburn is controlled: Yes. Dysphagia: No. Bloody or black stools: No. No rectal bleeding. Bowel changes: 75-80% fairly solid if follows rules . Occasional diarrhea, no incontinence. Last EGD and/or colonoscopy: Records retrieved and reviewed from [facility] 04/30/[address] Howie Gutierrez: grade II non-thrombosed IH, EH, end-end anastamosis WNL. No specimens. 05/24/2012 barium swallow WNL. Component Latest Ref Rng & Units 06/25/2022 Protein, Total 6.3 - 8.0 g/dL 7.0 Albumin 3.9 - 4.9 g/dL 4.7 Calcium 8.5 - 10.2 mg/dL 9.4 Bilirubin, Total 0.2 - 1.3 mg/dL 0.4 Alkaline Phosphatase 34 - 123 U/L 93 AST 13 - 35 U/L 20 ALT 7 - 38 U/L 12 Glucose 74 - 99 mg/dL 145 (H) BUN 7 - 21 mg/dL 21 Creatinine 0.58 - 0.96 mg/dL 0.82 Sodium 136 - 144 mmol/L 140 Potassium 3.7 - 5.1 mmol/L 3.7 Chloride 97 - 105 mmol/L 102 CO2 22 - 30 mmol/L 24 Anion Gap 9 - 18 mmol/L 14 eGFR >=60 mL/min/1.73m 80 Vitamin D 25 Hydroxy 31.0 - 80.0 ng/mL 50.7 PTH, Intact 15 - 65 pg/mL 57 Vitamin B12 232 - 1,245 pg/mL 237 TSH 0.270 - 4.200 mIU/L 1.780 Free T4 0.9 - 1.7 ng/dL 1.1 Venous (peripheral) insufficiency Stands all day long Swelling by end of the day. Walks on breaks. Osteoporosis 05/01/[address] Singh: patient declined Forteo, has reservations about medication side effects. Has also talked about Prolia. FAMILY HISTORY Problem Relation Age of Onset Osteoporosis Mother other (parkinsons) Mother other (renal disease) Maternal Grandfather PAST MEDICAL HISTORY Diagnosis Date Diarrhea Dyskinesia of esophagus Esophageal reflux History of surgical removal of terminal ileum 06/10/2021 Loss of weight PAST SURGICAL HISTORY Procedure Laterality Date BREAST RIGHT FINE NEEDLE ASPIRATION 09/02/05 Right x 3 cysts COLONOSCOPY FLX DX W/COLLJ SPEC WHEN PFRMD 07/01/2012 Colonoscopy repeat 10 years ENTRC RESCJ SMALL INTESTINE 1 RESCJ & ANAST 10/14/06 ESOPHAGOGASTRODUODENOSCOPY TRANSORAL DIAGNOSTIC 01/23/2009 EGD ESOPHAGOGASTRODUODENOSCOPY TRANSORAL DIAGNOSTIC 07/01/2012 EGD INSJ NON-TUNNELED CENTRAL VENOUS CATH AGE 3 YR/> 10/14/06 TONSILLECTOMY PRIMARY/SECONDARY <AGE 10 Tonsillectomy TOTAL ABDOMINAL HYSTERECT W/WO RMVL TUBE OVARY Hysterectomy, appendectomy(ovaries remain) Social History Tobacco Use Smoking status: Never Smokeless tobacco: Never Substance Use Topics Alcohol use: No Drug use: No ACTIVE PROBLEM LIST Unspecified Venous (Peripheral) Insufficiency Gerd (Gastroesophageal Reflux Disease) History of Surgical Removal of Terminal Ileum Chronic Diarrhea Osteoporosis Underweight Vitamin B12 deficiency Current Outpatient Medications Medication Sig Dispense Refill diphenoxylate-atropine (LOMOTIL) 2.5-0.025 mg per tablet TAKE ONE TABLET BY MOUTH BEFORE MEALS AND AT BEDTIME 360 tablet 5 cyanocobalamin (VITAMIN B-12) 1,000 mcg tab Take 1 tablet by mouth once daily. cholecalciferol (VITAMIN D3) 1,000 unit tab tablet Take 1 tablet by mouth once daily. Blood Pressure Monitor 1 Each once daily as needed. 1 Each 0 THERAPEUTIC MULTIVITAMIN TAB Take one(1) tablet daily. 0 No current facility-administered medications for this visit. LIPID SCREEN due on 07/21/2011 COLORECTAL CANCER SCREENING due on 07/01/2022 DEPRESSION ASSESSMENT Never done INFLUENZA(1) due on 07/09/2023 EXAM: BP 112/62 Pulse 78 Temp 36.8 C (98.3 F) (Tympanic) Wt 47.6 kg (105 lb) SpO2 99% BMI 16.60 kg/m Pleasant thin adul woman in no acute distress. Alert and oriented all spheres. Normal affect and cognition. Speech normal. No deficits to learning or comprehension. Skin warm, dry, pink to lips and nailbeds. Normal turgor. Respirations regular and unlabored. HEENT: NCAT. No scleral icterus or conjunctival injection. TM's clear. Nose and oropharynx free from injection or lesion. Oral membranes moist and pink. No cervical lymph nodes. Thyroid non-tender, no masses, or enlargement. Carotids pulses 2+/4+ without bruits. No JVD with HOB at 30 degrees. Chest is normal shape. Lungs are clear to all moya with good air exchange through out. HRRR without murmur or gallop. No lifts, heaves, or rubs. Abdomen: active bowel sounds throughout, soft, nontender, no masses or organomegaly. No CVAT. Extrem: no clubbing or cyanosis. Edema: none. Extremities are warm and pink with prompt capillary refill. ASSESSMENT/PLAN: 1. History of surgical removal of terminal ileum - ICD9: V45.89, ICD10: Z98.890, Z90.49 (primary diagnosis) Stable pattern with bowel. Recent colonoscopy clear. 2. Vitamin B12 deficiency - ICD9: 266.2, 579.9, ICD10: E53.8, K90.9 supplements 3. Underweight - ICD9: 783.22, ICD10: R63.6 Chronic, stable 4. Osteoporosis - ICD9: 733.09, ICD10: M81.8 - Reviewed the need for Calcium and Vitamin D supplements and weight bearing exercise as tolerated Discussed medications, side effects, she is well informed. Reviewed low risk with the most serious side effects 5. Chronic diarrhea - ICD9: 787.91, ICD10: K52.9 Manages well 6. Gastroesophageal reflux disease with esophagitis without hemorrhage - ICD9: 530.81, 530.10, ICD10: K21.00 No current sx. 7. Venous (peripheral) insufficiency - ICD9: 459.81, ICD10: I87.2 Mild progressive swelling throughout the day. Discussed compression stockings. Office Visit on 07/15/23 CBC + DIFF VITAMIN B12 BLOOD BASIC METABOLIC PNL LIPID PANEL BASIC Germania Cordeor PA-C documented in this encounter [facility] 02-19-2023 Miscellaneous Notes Patient has been identified by name and date of : Yes Requested Prescriptions Pending Prescriptions Disp Refills diphenoxylate-atropine (LOMOTIL) 2.5-0.025 mg per tablet 360 tablet 5 Sig: TAKE ONE TABLET BY MOUTH BEFORE MEALS AND AT BEDTIME RX INSTRUCTIONS: Patient aware RX will be sent to pharmacy. No need to notify patient. Lisa Marcano documented in this encounter [facility] 01-11-2023 Note HNO ID: [id number] Author: Germania Cordero PA-C Service: ? Author Type: Physician Pathology Secretary/Transcriptionist Type: Progress Notes Filed: 01/11/2023 7:09 PM Note Text: 62 year old female with c/o here for follow up 12/03/2022 right hand injury, slipped and fell on ice. XR degenerative changes in wrist, no fx. Doing well, slow healer but states 95% better. Osteoporosis 12/17/2021 DXA T-scores LS-3.4; LH -3.0; LFN -3.6 l, FRAX major 26%, hip 6.5% 05/01/[address] Singh: recommended Prolia. Still trying to decide. Has concerns about esophageal issues, effects of stopping Prolia once on it. Hasn't researched Reclast. Non-smoker No alcohol use Hx right arm fracture age 3 Height trends 01/07/2007 67in, 66.693 in Menarche age 10 2012 Hysterectomy Menopause: hot flashes 11 years ago, resolved Hx resection ileum, GERD, esophageal narrowing FH esophageal cancer Component Latest Ref Rng AND Units 12/24/2006 07/28/2007 06/25/2022 Vitamin B12 232 - 1,245 pg/mL 363 260 237 Vitamin D 25 Hydroxy 31.0 - 80.0 ng/mL 50.7 PTH, Intact 15 - 65 pg/mL 57 Component Latest Ref Rng AND Units 06/25/2022 Albumin 3.9 - 4.9 g/dL 4.7 Calcium 8.5 - 10.2 mg/dL 9.4 Vitamin b12 deficiency Underweight History of surgical removal of terminal ileum Chronic diarrhea Current medications: Lomotil 2.5-0. 0 to 5 mg daily before meals and bedtime Cyanocobalamin 1000 mcg tablet daily 10/13/2006 Dr. Howie Gutierrez: SBO, distal SB resection and cecectomy. Current symptoms: about the same. Sudden dumping, hard to figure out pattern. Tries very hard to be regulated. Heartburn is controlled: None Dysphagia: No. Bloody or black stools: No. Bowel changes: No. unchanged: 25-30% diarrhea, usually sudden. No incontinence. Last EGD and/or colonoscopy: 07/01/2012: EGD: Dr. Castaneda: Z-line regular, prepyloric erythema 07/01/2012: colonoscopy fro chronic diarrhea Dr. Castaneda: redundant colon, non-bleeding internal hemorrhoids, bx for microscopic colitis. Path: 1. Duodenum, biopsy (A) - Duodenal mucosa with no significant diagnostic alteration. 2. Possible ileal mucosa, biopsy (B) - Small bowel mucosa with no significant diagnostic alteration. Gastroesophageal reflux disease with esophagitis without hemorrhage Lab hx as above HISTORIES FAMILY HISTORY Problem Relation Age of Onset Osteoporosis Mother other (parkinsons) Mother other (renal disease) Maternal Grandfather PAST MEDICAL HISTORY Diagnosis Date Diarrhea Dyskinesia of esophagus Esophageal reflux History of surgical removal of terminal ileum 06/10/2021 Loss of weight PAST SURGICAL HISTORY Procedure Laterality Date BREAST RIGHT FINE NEEDLE ASPIRATION 09/02/05 Right x 3 cysts COLONOSCOPY FLX DX W/COLLJ SPEC WHEN PFRMD 07/01/2012 Colonoscopy repeat 10 years ENTR RESCJ SMALL INTESTINE 1 RESCJ AND ANAST 10/14/06 ESOPHAGOGASTRODUODENOSCOPY TRANSORAL DIAGNOSTIC 01/23/2009 EGD ESOPHAGOGASTRODUODENOSCOPY TRANSORAL DIAGNOSTIC 07/01/2012 EGD INSJ NON-TUNNELED CENTRAL VENOUS CATH AGE 3 YR/> 10/14/06 TONSILLECTOMY PRIMARY/SECONDARY Tonsillectomy TOTAL ABDOMINAL HYSTERECT W/WO RMVL TUBE OVARY Hysterectomy, appendectomy(ovaries remain) Social History Tobacco Use Smoking status: Never Smokeless tobacco: Never Substance Use Topics Alcohol use: No Drug use: No ACTIVE PROBLEM LIST Unspecified Venous (Peripheral) Insufficiency Gerd (Gastroesophageal Reflux Disease) History of Surgical Removal of Terminal Ileum Chronic Diarrhea Osteoporosis Underweight Vitamin B12 deficiency Current Outpatient Medications Medication Sig Dispense Refill diphenoxylate-atropine (LOMOTIL) 2.5-0.025 mg per tablet TAKE ONE TABLET BY MOUTH BEFORE MEALS AND AT BEDTIME 360 tablet 5 cyanocobalamin (VITAMIN B-12) 1,000 mcg tab Take 1 tablet by mouth once daily. cholecalciferol (VITAMIN D3) 1,000 unit tab tablet Take 1 tablet by mouth once daily. Blood Pressure Monitor 1 Each once daily as needed. 1 Each 0 THERAPEUTIC MULTIVITAMIN TAB Take one(1) tablet daily. 0 No current facility-administered medications for this visit. SHINGRIX VACCINE(1 of 2) Never done LIPID SCREEN due on 07/21/2011 COLORECTAL CANCER SCREENING due on 07/01/2022 INFLUENZA(1) due on 07/09/2022 DEPRESSION ASSESSMENT Never done EXAM: BP 128/74 Pulse 74 Resp 16 Wt 47.6 kg (105 lb) SpO2 99% BMI 16.60 kg/m? Pleasant adult woman in no acute distress. Alert and oriented all spheres. Normal affect and cognition. Speech normal. No deficits to learning or comprehension. Skin warm, dry, pink to lips and nailbeds. Normal turgor. Respirations regular and unlabored. HEENT: NCAT. No scleral icterus or conjunctival injection. TM's clear. Nose and oropharynx free from injection or lesion. Oral membranes moist and pink. No cervical lymph nodes. Thyroid non-tender, no masses, or enlargement. Carotids pulses 2+/4+ without bruits. No JVD with HOB at 30 degrees. Chest is (more content not included)... [facility] 01-11-2023 History of Presen t illness Narrative 62 year old female with c/o here for follow up 12/03/2022 right hand injury, slipped and fell on ice. XR degenerative changes in wrist, no fx. Doing well, slow healer but states 95% better. Osteoporosis 12/17/2021 DXA T-scores LS-3.4; LH -3.0; LFN -3.6 l, FRAX major 26%, hip 6.5% 05/01/[address] Singh: recommended Prolia. Still trying to decide. Has concerns about esophageal issues, effects of stopping Prolia once on it. Hasn't researched Reclast. Non-smoker No alcohol use Hx right arm fracture age 3 Height trends 01/07/2007 67in, 66.693 in Menarche age 10 2012 Hysterectomy Menopause: hot flashes 11 years ago, resolved Hx resection ileum, GERD, esophageal narrowing FH esophageal cancer Component Latest Ref Rng & Units 12/24/2006 07/28/2007 06/25/2022 Vitamin B12 232 - 1,245 pg/mL 363 260 237 Vitamin D 25 Hydroxy 31.0 - 80.0 ng/mL 50.7 PTH, Intact 15 - 65 pg/mL 57 Component Latest Ref Rng & Units 06/25/2022 Albumin 3.9 - 4.9 g/dL 4.7 Calcium 8.5 - 10.2 mg/dL 9.4 Vitamin b12 deficiency Underweight History of surgical removal of terminal ileum Chronic diarrhea Current medications: Lomotil 2.5-0. 0 to 5 mg daily before meals and bedtime Cyanocobalamin 1000 mcg tablet daily 10/13/2006 Dr. Howie Gutierrez: SBO, distal SB resection and cecectomy. Current symptoms: about the same. Sudden dumping, hard to figure out pattern. Tries very hard to be regulated. Heartburn is controlled: None Dysphagia: No. Bloody or black stools: No. Bowel changes: No. unchanged: 25-30% diarrhea, usually sudden. No incontinence. Last EGD and/or colonoscopy: 07/01/2012: EGD: Dr. Castaneda: Z-line regular, prepyloric erythema 07/01/2012: colonoscopy fro chronic diarrhea Dr. Castaneda: redundant colon, non-bleeding internal hemorrhoids, bx for microscopic colitis. Path: 1. Duodenum, biopsy (A) - Duodenal mucosa with no significant diagnostic alteration. 2. Possible ileal mucosa, biopsy (B) - Small bowel mucosa with no significant diagnostic alteration. Gastroesophageal reflux disease with esophagitis without hemorrhage Lab hx as above HISTORIES FAMILY HISTORY Problem Relation Age of Onset Osteoporosis Mother other (parkinsons) Mother other (renal disease) Maternal Grandfather PAST MEDICAL HISTORY Diagnosis Date Diarrhea Dyskinesia of esophagus Esophageal reflux History of surgical removal of terminal ileum 06/10/2021 Loss of weight PAST SURGICAL HISTORY Procedure Laterality Date BREAST RIGHT FINE NEEDLE ASPIRATION 09/02/05 Right x 3 cysts COLONOSCOPY FLX DX W/COLLJ SPEC WHEN PFRMD 07/01/2012 Colonoscopy repeat 10 years ENTRC RESCJ SMALL INTESTINE 1 RESCJ & ANAST 10/14/06 ESOPHAGOGASTRODUODENOSCOPY TRANSORAL DIAGNOSTIC 01/23/2009 EGD ESOPHAGOGASTRODUODENOSCOPY TRANSORAL DIAGNOSTIC 07/01/2012 EGD INSJ NON-TUNNELED CENTRAL VENOUS CATH AGE 3 YR/> 10/14/06 TONSILLECTOMY PRIMARY/SECONDARY <AGE 10 Tonsillectomy TOTAL ABDOMINAL HYSTERECT W/WO RMVL TUBE OVARY Hysterectomy, appendectomy(ovaries remain) Social History Tobacco Use Smoking status: Never Smokeless tobacco: Never Substance Use Topics Alcohol use: No Drug use: No ACTIVE PROBLEM LIST Unspecified Venous (Peripheral) Insufficiency Gerd (Gastroesophageal Reflux Disease) History of Surgical Removal of Terminal Ileum Chronic Diarrhea Osteoporosis Underweight Vitamin B12 deficiency Current Outpatient Medications Medication Sig Dispense Refill diphenoxylate-atropine (LOMOTIL) 2.5-0.025 mg per tablet TAKE ONE TABLET BY MOUTH BEFORE MEALS AND AT BEDTIME 360 tablet 5 cyanocobalamin (VITAMIN B-12) 1,000 mcg tab Take 1 tablet by mouth once daily. cholecalciferol (VITAMIN D3) 1,000 unit tab tablet Take 1 tablet by mouth once daily. Blood Pressure Monitor 1 Each once daily as needed. 1 Each 0 THERAPEUTIC MULTIVITAMIN TAB Take one(1) tablet daily. 0 No current facility-administered medications for this visit. SHINGRIX VACCINE(1 of 2) Never done LIPID SCREEN due on 07/21/2011 COLORECTAL CANCER SCREENING due on 07/01/2022 INFLUENZA(1) due on 07/09/2022 DEPRESSION ASSESSMENT Never done EXAM: BP 128/74 Pulse 74 Resp 16 Wt 47.6 kg (105 lb) SpO2 99% BMI 16.60 kg/m Pleasant adult woman in no acute distress. Alert and oriented all spheres. Normal affect and cognition. Speech normal. No deficits to learning or comprehension. Skin warm, dry, pink to lips and nailbeds. Normal turgor. Respirations regular and unlabored. HEENT: NCAT. No scleral icterus or conjunctival injection. TM's clear. Nose and oropharynx free from injection or lesion. Oral membranes moist and pink. No cervical lymph nodes. Thyroid non-tender, no masses, or enlargement. Carotids pulses 2+/4+ without bruits. No JVD with HOB at 30 degrees. Chest is normal shape. Lungs are clear to all moya with good air exchange through out. HRRR without murmur or gallop. No lifts, heaves, or rubs. Extrem: no clubbing or cyanosis. Edema: none. Extremities are warm and pink with prompt capillary refill. ASSESSMENT/PLAN: 1. Vitamin B12 deficiency - ICD9: 266.2, 579.9, ICD10: E53.8, K90.9 (primary diagnosis) Stable levels 2. Underweight - ICD9: 783.22, ICD10: R63.6 Stable weight 3. Osteoporosis - ICD9: 733.09, ICD10: M81.8 - Reviewed the need for Calcium and Vitamin D supplements and weight bearing exercise as tolerated 4. History of surgical removal of terminal ileum - ICD9: V45.89, ICD10: Z98.890, Z90.49 Non change in bowel. Calling Dr. Howie Gutierrez 5. Chronic diarrhea - ICD9: 787.91, ICD10: K52.9 Persistent but stable 6. Gastroesophageal reflux disease with esophagitis without hemorrhage - ICD9: 530.81, 530.10, ICD10: K21.00 - Discussed lifestyle modifications including losing weight, limiting caffeine, no meals three hours before sleep, and head of bed elevation Continue current meds. Germania Cordero PA-C Some of this note may have been copied and pasted for the purpose of history context and comparison. documented in this encounter [facility] 12-04-2022 Miscellaneous Notes Patient was notified Susana Burden Ma Let her know the xray is ok of her wrist. Call if symptoms worsen at all or if not better in one to two weeks documented in this encounter [facility] 12-03-2022 Note HNO ID: [id number] Author: RT Vee(R) Service: Nuclear Medicine Author Type: Technologist Type: Progress Notes Filed: 12/03/2022 12:45 PM Note Text: Radiology Service Progress Note PATIENT NAME: Susana Meneses DATE OF SERVICE: December 03, 2022 TIME: 12:37 PM PATIENT IDENTITY VERIFICATION COMPLETED USING TWO (2) IDENTIFIERS: Name and Date of confirmed by patient verbally. FALL SCREENING: Has the patient had 2 falls in the last year or 1 fall with injury or currently using an Ambulatory Assistive Device (Walker, Cane, Wheelchair, Crutches, etc.)? No PATIENT GENDER DATA: Female. status: : No status: NO. PATIENT RELEVANT IMPLANT DATA REVIEWED: Not Applicable RADIOLOGY DEPARTMENT: General X-ray: Exam(s) Completed: Upper Extremity X-Ray(s): Wrist, right PERIPHERAL IV DATA: Not applicable SIGNED BY: RT Vee(R) December 03, 2022 12:37 PM [facility] 12-03-2022 Note HNO ID: [id number] Author: Jazmín Villaseñor MD Service: ? Author Type: Physician Type: Progress Notes Filed: 12/03/2022 12:01 PM Note Text: Patient presents with: Fall HPI: Patient presents today for office visit for FALL Patient complains of: injury after a fall. Duration: She slipped and fell on ice yesterday on a cement sidewalk. Location:Scraped left forearm and jammed right wrist Associated Symptoms: swelling in right wrist. Aggravating factors: typing on keyboard Things that improve symptoms :neosporin and bandage on scrape Did not hit her head or loc. Landed on her outstretched hand. No elbow or shoudler pain. Up to date on tetanus. No numbness or tingling. MEDICATIONS: Current Outpatient Medications Medication Sig diphenoxylate-atropine (LOMOTIL) 2.5-0.025 mg per tablet TAKE ONE TABLET BY MOUTH BEFORE MEALS AND AT BEDTIME cyanocobalamin (VITAMIN B-12) 1,000 mcg tab Take 1 tablet by mouth once daily. cholecalciferol (VITAMIN D3) 1,000 unit tab tablet Take 1 tablet by mouth once daily. Blood Pressure Monitor 1 Each once daily as needed. THERAPEUTIC MULTIVITAMIN TAB Take one(1) tablet daily. No current facility-administered medications for this visit. ALLERGIES: ALLERGIES Allergen Reactions Sulfa (Sulfonamide * PAST MEDICAL HISTORY Diagnosis Date Diarrhea Dyskinesia of esophagus Esophageal reflux History of surgical removal of terminal ileum 06/10/2021 Loss of weight PAST SURGICAL HISTORY Procedure Laterality Date BREAST RIGHT FINE NEEDLE ASPIRATION 09/02/05 Right x 3 cysts COLONOSCOPY FLX DX W/COLLJ SPEC WHEN PFRMD 07/01/2012 Colonoscopy repeat 10 years ENTRC RESCJ SMALL INTESTINE 1 RESCJ AND ANAST 10/14/06 ESOPHAGOGASTRODUODENOSCOPY TRANSORAL DIAGNOSTIC 01/23/2009 EGD ESOPHAGOGASTRODUODENOSCOPY TRANSORAL DIAGNOSTIC 07/01/2012 EGD INSJ NON-TUNNELED CENTRAL VENOUS CATH AGE 3 YR/> 10/14/06 TONSILLECTOMY PRIMARY/SECONDARY Tonsillectomy TOTAL ABDOMINAL HYSTERECT W/WO RMVL TUBE OVARY Hysterectomy, appendectomy(ovaries remain) FAMILY HISTORY Problem Relation Age of Onset Osteoporosis Mother other (parkinsons) Mother other (renal disease) Maternal Grandfather Social History Tobacco Use Smoking status: Never Smokeless tobacco: Never Substance Use Topics Alcohol use: No Drug use: No Reviewed current medications, allergies, past medical history, surgical history, family history and social history today. REVIEW OF SYSTEMS All other reviewed and negative other than HPI. VITALS: BP 128/72 Pulse 70 Resp 16 Wt 48.1 kg (106 lb) SpO2 100% BMI 16.76 kg/m? Last 4 Encounter Wt Readings: Date: Wt: 12/03/2022 48.1 kg (106 lb) 07/14/2022 47.5 kg (104 lb 12.8 oz) 05/01/2022 47.6 kg (105 lb) 11/18/2021 48.5 kg (107 lb) PHYSICAL EXAMINATION: General appearance: Well appearing, alert, in no acute distress, well-hydrated, well nourished. Skin: healing abrasion on left forearm Extremities: mild edema over radial side of wrist. Normal range of motion. Not painful to palpation. Normal range of motion. Musculoskeletal: No joint swelling, deformity, or tenderness Peripheral pulses: Normal Neuro: Negative. ASSESSMENT/PLAN: 1. Hand injury, right, initial encounter - ICD9: 959.4, ICD10: S69.91XA (primary diagnosis) - RICE - Call if symptoms worsen at all or if not better in one to two week - XR WRIST GENERAL 3V PA/LAT/OBL RIGHT 2. Fall, initial encounter - ICD9: E888.9, ICD10: W19.XXXA - XR WRIST GENERAL 3V PA/LAT/OBL RIGHT 3. Contusion of right wrist, initial encounter - ICD9: 923.21, ICD10: S60.211A Jazmín Villaseñor MD Medical Decision Making: Problems: Moderate: New problem with uncertain prognosis Data: Unique test(s) ordered: 1 Medical Decision Making Level: 2 - Straightforward [facility] 12-03-2022 History of Presen t illness Narrative Patient presents with: Fall HPI: Patient presents today for office visit for FALL Patient complains of: injury after a fall. Duration: She slipped and fell on ice yesterday on a cement sidewalk. Location:Scraped left forearm and jammed right wrist Associated Symptoms: swelling in right wrist. Aggravating factors: typing on keyboard Things that improve symptoms :neosporin and bandage on scrape Did not hit her head or loc. Landed on her outstretched hand. No elbow or shoudler pain. Up to date on tetanus. No numbness or tingling. MEDICATIONS: Current Outpatient Medications Medication Sig diphenoxylate-atropine (LOMOTIL) 2.5-0.025 mg per tablet TAKE ONE TABLET BY MOUTH BEFORE MEALS AND AT BEDTIME cyanocobalamin (VITAMIN B-12) 1,000 mcg tab Take 1 tablet by mouth once daily. cholecalciferol (VITAMIN D3) 1,000 unit tab tablet Take 1 tablet by mouth once daily. Blood Pressure Monitor 1 Each once daily as needed. THERAPEUTIC MULTIVITAMIN TAB Take one(1) tablet daily. No current facility-administered medications for this visit. ALLERGIES: ALLERGIES Allergen Reactions Sulfa (Sulfonamide * PAST MEDICAL HISTORY Diagnosis Date Diarrhea Dyskinesia of esophagus Esophageal reflux History of surgical removal of terminal ileum 06/10/2021 Loss of weight PAST SURGICAL HISTORY Procedure Laterality Date BREAST RIGHT FINE NEEDLE ASPIRATION 09/02/05 Right x 3 cysts COLONOSCOPY FLX DX W/COLLJ SPEC WHEN PFRMD 07/01/2012 Colonoscopy repeat 10 years ENTRC RESCJ SMALL INTESTINE 1 RESCJ & ANAST 10/14/06 ESOPHAGOGASTRODUODENOSCOPY TRANSORAL DIAGNOSTIC 01/23/2009 EGD ESOPHAGOGASTRODUODENOSCOPY TRANSORAL DIAGNOSTIC 07/01/2012 EGD INSJ NON-TUNNELED CENTRAL VENOUS CATH AGE 3 YR/> 10/14/06 TONSILLECTOMY PRIMARY/SECONDARY <AGE 10 Tonsillectomy TOTAL ABDOMINAL HYSTERECT W/WO RMVL TUBE OVARY Hysterectomy, appendectomy(ovaries remain) FAMILY HISTORY Problem Relation Age of Onset Osteoporosis Mother other (parkinsons) Mother other (renal disease) Maternal Grandfather Social History Tobacco Use Smoking status: Never Smokeless tobacco: Never Substance Use Topics Alcohol use: No Drug use: No Reviewed current medications, allergies, past medical history, surgical history, family history and social history today. REVIEW OF SYSTEMS All other reviewed and negative other than HPI. VITALS: BP 128/72 Pulse 70 Resp 16 Wt 48.1 kg (106 lb) SpO2 100% BMI 16.76 kg/m Last 4 Encounter Wt Readings: Date: Wt: 12/03/2022 48.1 kg (106 lb) 07/14/2022 47.5 kg (104 lb 12.8 oz) 05/01/2022 47.6 kg (105 lb) 11/18/2021 48.5 kg (107 lb) PHYSICAL EXAMINATION: General appearance: Well appearing, alert, in no acute distress, well-hydrated, well nourished. Skin: healing abrasion on left forearm Extremities: mild edema over radial side of wrist. Normal range of motion. Not painful to palpation. Normal range of motion. Musculoskeletal: No joint swelling, deformity, or tenderness Peripheral pulses: Normal Neuro: Negative. ASSESSMENT/PLAN: 1. Hand injury, right, initial encounter - ICD9: 959.4, ICD10: S69.91XA (primary diagnosis) - RICE - Call if symptoms worsen at all or if not better in one to two week - XR WRIST GENERAL 3V PA/LAT/OBL RIGHT 2. Fall, initial encounter - ICD9: E888.9, ICD10: W19.XXXA - XR WRIST GENERAL 3V PA/LAT/OBL RIGHT 3. Contusion of right wrist, initial encounter - ICD9: 923.21, ICD10: S60.211A Jazmín Villaseñor MD Medical Decision Making: Problems: Moderate: New problem with uncertain prognosis Data: Unique test(s) ordered: 1 Medical Decision Making Level: 2 - Straightforward documented in this encounter [facility] 10-21-2022 Note Patient Outreach (IN TMMN) SUSANA MENESES ([id number]) 1960 F [facility] Date Time Provider Department 10/21/22 Germania CORDERO During your visit today, we recorded the following information about you: Allergies As of Date: 10/21/2022 Noted Allergy Reaction SULFA (SULFONAMIDE ANTIBIOTICS) 09/02/2005 Date Reviewed: 05/01/2022 Reviewed by: Jodi Em MA - Fully Assessed Visit Diagnosis:Encounter for screening mammogram for breast cancer [Z12.31] Order(s):[facility] SCREENING [[id number]] Order #: [id number] FUTURE Prescriptions as of 10/26/2022 - diphenoxylate-atropine (LOMOTIL) 2.5-0.025 mg per tablet TAKE ONE TABLET BY MOUTH BEFORE MEALS AND AT BEDTIME - cyanocobalamin (VITAMIN B-12) 1,000 mcg tab Take 1 tablet by mouth once daily. - cholecalciferol (VITAMIN D3) 1,000 unit tab tablet Take 1 tablet by mouth once daily. - Blood Pressure Monitor 1 Each once daily as needed. - THERAPEUTIC MULTIVITAMIN TAB Take one(1) tablet daily. 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/2018 Dyskinesia of esophagus [K22.4] 01/23/2009 12/12/2018 Acute gastritis without mention of hemorrhage [*01/23/2009 05/18/2018 Loss of weight [R63.4] 01/23/2009 05/01/2022 GERD (gastroesophageal reflux disease) [K21.9] 01/15/2012 Esophagitis, unspecified [K20.90] 07/01/2012 12/12/2018 History of surgical removal of terminal ileum [*06/10/2021 Chronic diarrhea [K52.9] 06/10/2021 Osteoporosis [M81.8] 12/17/2021 Underweight [R63.6] 05/01/2022 Vitamin B12 deficiency [E53.8, K90.9] 06/29/2022 Encounter Status:Closed by AMAURY QUEZADA on 10/26/22 [facility] 08-06-2022 Miscellaneous Notes Patient returned call. Notified patient of Dr Singh's message. Patient verbalized understanding and all questions were answered. Patient will decide and call back in November to schedule if she is agreeable. Encounter closed. Called patient's work# at ,[phone], no answer, no VM available. Called patient's home# at ,[phone] left voice message to call office at [phone], and ask to speak to the nurse. Patient returned call. Offered to get her scheduled for Prolia. State's she is concerned about starting this medication. She has several concerns. She feels that taking this medication could increase her risk of illness she does not res[pond well to illness because she loses weight rapidly and this is concerning to her - Risk of illness is very unlikely with this medication, and it reduces the risk of fractures over time. State's she is very sensitive to medication in general and often has to take half doses of things because she cannot tolerate normal doses of medications. Half dose would not be effective and since it is given via injection there is not likely to be any issues She is planning to travel in August, September and October (3 separate trips) So she is wondering if she does decide to take this can she wait until November 2022? OK to wait until 11/2022 If she does not tolerate this medication what would be her next option. Yearly Reclast IV infusion is also a possibility. If she had a reaction how long would that last. There is unlikely to be any reaction, so the answer to this question is unknown She read that if she cannot take this and has to stop then if she doesn't replace it with something else this can increase her risk greater for fractures. Can treat for up to 10 years at this point, then could change to Reclast infusion after that. Patient returned call. Offered to get her scheduled for Prolia. State's she is concerned about starting this medication. She has several concerns. She feels that taking this medication could increase her risk of illness she does not res[pond well to illness because she loses weight rapidly and this is concerning to her. State's she is very sensitive to medication in general and often has to take half doses of things because she cannot tolerate normal doses of medications. She is planning to travel in August, September and October (3 separate trips) So she is wondering if she does decide to take this can she wait until November 2022? If she does not tolerate this medication what would be her next option. If she had a reaction how long would that last. She read that if she cannot take this and has to stop then if she doesn't replace it with something else this can increase her risk greater for fractures. No response back from [facility] regarding the below PA. Called and spoke to [facility] )Darlene) she stated that this has been APPROVED. Effective: 07/28/2022---07/28/2023 Auth# [id number] Called patient's home at [phone] left voice message to call office at [phone], and ask to speak to the nurse. Patient has been ordered Prolia 60 mg Subcutaneous Injection Therapy, every 6 months (New Start). This will be bought and billed by [facility], and administered by RN in the office. Ordered by: Dr Singh Insurance: [facility] [employer] ID#[id number] DX: M81.8 CPT: J0897 Reason for Therapy / Tried and Failed: Bisphosphonates are contraindicated due to GI Disease. Completed a Prior Authorization form. Attached the Last Office Note, Last Bone Density (DXA) Scan, and a Copy of the Insurance Card(s). Faxed all of these documents to the insurance at: [phone] Will await approval / denial. documented in this encounter [facility] 07-28-2022 Miscellaneous Notes Notified patient of Dr Singh's message. Patient verbalized understanding and all questions were answered. Patient is agreeable. Will start the PA process. Encounter closed. Called patient's home/cell# at [phone] left voice message to call office at [phone], and ask to speak to the nurse. Start Prolia every six months. Let me know if she is agreeable and we can start the process. Patient called and left a VM on nurses line. State's her insurance denied the Forteo, but she does not want to take it anyway after reviewing the possible side effects of Hypotension. She would like to be given other options. She has GERD. documented in this encounter [facility] 07-14-2022 History of Presen t illness Narrative 61 year old female with c/o here for follow up. Has Covid 06/09/2022 with full recovery. Functional diarrhea (primary encounter diagnosis) History of surgical removal of terminal ileum Chronic diarrhea Gastroesophageal reflux disease without esophagitis Irritable bowel syndrome with diarrhea Vitamin b12 deficiency Underweight 10/13/2006 Dr. Howie Gutierrez: SBO, distal SB resection and cecectomy. Current medications: Lomotoil 2.5-o.025mg 1 tab AC+HS Cyanocobalamin 1000mcg daily Current symptoms: about the same. Sudden dumping, hard to figure out pattern. Tries very hard to be regulated. Heartburn is controlled: No. Dysphagia: No. Bloody or black stools: No. Bowel changes: No. 25-30% diarrhea, usually sudden. No incontinence Last EGD and/or colonoscopy: 07/01/2012: EGD: Dr. Castaneda: Z-line regular, prepyloric erythema 07/01/2012: colonoscopy fro chronic diarrhea Dr. Castaneda: redundant colon, non-bleeding internal hemorrhoids, bx for microscopic colitis. Path: 1. Duodenum, biopsy (A) - Duodenal mucosa with no significant diagnostic alteration. 2. Possible ileal mucosa, biopsy (B) - Small bowel mucosa with no significant diagnostic alteration. Vitals 11/18/2021 05/01/2022 07/14/2022 WEIGHT in POUNDS 107 lb 105 lb 104 lb 12.8 oz WEIGHT in KILOGRAMS 48.535 kg 47.628 kg 47.537 kg Elevated blood pressure reading without diagnosis of hypertension Last 14 BP No medication Last 14 Encounter BP Readings: Date: BP: 05/01/2022 158/75 11/18/2021 136/82 06/10/2021 157/99 12/12/2018 130/82 05/13/2012 142/88 01/15/2012 120/90 10/02/2011 144/100 01/02/2009 96/54 12/25/2008 130/90 11/17/2008 130/80 06/06/2007 156/78 02/08/2007 128/84 11/10/2006 122/80 07/14/2006 140/82 Home BP 120-130/ 71-78, usually in the evening after work. Osteoporosis 12/17/2021 t-scores: LS -3.4, LH -3.0, LFN -3.[address] Singh: recommended Forteo, hasn't yet decided on option. HISTORIES FAMILY HISTORY Problem Relation Age of Onset Osteoporosis Mother other (parkinsons) Mother other (renal disease) Maternal Grandfather PAST MEDICAL HISTORY Diagnosis Date Diarrhea Dyskinesia of esophagus Esophageal reflux History of surgical removal of terminal ileum 06/10/2021 Loss of weight PAST SURGICAL HISTORY Procedure Laterality Date BREAST RIGHT FINE NEEDLE ASPIRATION 09/02/05 Right x 3 cysts COLONOSCOPY FLX DX W/COLLJ SPEC WHEN PFRMD 07/01/2012 Colonoscopy repeat 10 years ENTRC RESCJ SMALL INTESTINE 1 RESCJ & ANAST 10/14/06 ESOPHAGOGASTRODUODENOSCOPY TRANSORAL DIAGNOSTIC 01/23/2009 EGD ESOPHAGOGASTRODUODENOSCOPY TRANSORAL DIAGNOSTIC 07/01/2012 EGD INSJ NON-TUNNELED CENTRAL VENOUS CATH AGE 3 YR/> 10/14/06 TONSILLECTOMY PRIMARY/SECONDARY <AGE 10 Tonsillectomy TOTAL ABDOMINAL HYSTERECT W/WO RMVL TUBE OVARY Hysterectomy, appendectomy(ovaries remain) Social History Tobacco Use Smoking status: Never Smokeless tobacco: Never Substance Use Topics Alcohol use: No Drug use: No ACTIVE PROBLEM LIST Unspecified Venous (Peripheral) Insufficiency Gerd (Gastroesophageal Reflux Disease) History of Surgical Removal of Terminal Ileum Chronic Diarrhea Osteoporosis Underweight Vitamin B12 deficiency Current Outpatient Medications Medication Sig Dispense Refill diphenoxylate-atropine (LOMOTIL) 2.5-0.025 mg per tablet TAKE ONE TABLET BY MOUTH BEFORE MEALS AND AT BEDTIME 360 tablet 1 cyanocobalamin (VITAMIN B-12) 1,000 mcg tab Take 1 tablet by mouth once daily. cholecalciferol (VITAMIN D3) 1,000 unit tab tablet Take 1 tablet by mouth once daily. Blood Pressure Monitor 1 Each once daily as needed. 1 Each 0 THERAPEUTIC MULTIVITAMIN TAB Take one(1) tablet daily. 0 No current facility-administered medications for this visit. SHINGRIX VACCINE(1 of 2) Never done LIPID SCREEN due on 07/21/2011 DEPRESSION SCREENING due on 06/10/2022 COVID-19 VACCINE(4 - Booster for Moderna series) due on 06/23/2022 COLORECTAL CANCER SCREENING due on 07/01/2022 INFLUENZA(1) due on 07/09/2022 MAMMOGRAM due on 09/05/2022 EXAM: BP 142/78 (BP Site: Right Arm, BP Position: Sitting, BP Cuff Size: Regular Adult) Pulse 78 Temp 37.1 C (98.7 F) (Tympanic) Resp 18 Wt 47.5 kg (104 lb 12.8 oz) SpO2 97% BMI 16.57 kg/m Pleasant thin adult woman in no acute distress. Alert and oriented all spheres. Normal affect and cognition. Speech normal. No deficits to learning or comprehension. Skin warm, dry, pink to lips and nailbeds. Normal turgor. Respirations regular and unlabored. HEENT: NCAT. No scleral icterus or conjunctival injection. TM's clear. Nose and oropharynx free from injection or lesion. Oral membranes moist and pink. No cervical lymph nodes. Thyroid non-tender, no masses, or enlargement. Carotids pulses 2+/4+ without bruits. No JVD with HOB at 30 degrees. Chest is normal shape. Lungs are clear to all moya with good air exchange through out. HRRR without murmur or gallop. No lifts, heaves, or rubs. .gbabmn Extrem: no clubbing or cyanosis. Edema: none. Extremities are warm and pink with prompt capillary refill. ASSESSMENT/PLAN: 1. Functional diarrhea - ICD9: 564.5, ICD10: K59.1 (primary diagnosis) 2. History of surgical removal of terminal ileum - ICD9: V45.89, ICD10: Z98.890, Z90.49 3. Chronic diarrhea - ICD9: 787.91, ICD10: K52.9 Stable with intermittent use Lomotil Consult placed to Dr. Howie Gutierrez: she wants to wait until next year. for colonoscopy 4. Gastroesophageal reflux disease without esophagitis - ICD9: 530.81, ICD10: K21.9 Controlled off medication 5. Irritable bowel syndrome with diarrhea - ICD9: 564.1, ICD10: K58.0 Secondary to above 6. Underweight - ICD9: 783.22, ICD10: R63.6 Recent Covid took her down a few pounds- feeling better 7. Elevated blood pressure reading without diagnosis of hypertension - ICD9: 796.2, ICD10: R03.0 - Encouraged dietary sodium restriction/DASH diet - Recommended regular aerobic exercise. - Recommend home blood pressure monitoring, to bring results in on next visit - white coat syndrome - Goal of BP <130/80 8. Vitamin B12 deficiency - ICD9: 266.2, 579.9, ICD10: E53.8, K90.9 controlled 9. Osteoporosis - ICD9: 733.09, ICD10: M81.[address] Singh: discussed options at length. Very concerned about orthostatic hypotension. Will discuss with endo. Germania Cordero PA-C documented in this encounter [facility] 06-30-2022 Miscellaneous Notes Patient has been identified by name and date of : Yes Patient phones for refill(s): Requested Prescriptions Pending Prescriptions Disp Refills diphenoxylate-atropine (LOMOTIL) 2.5-0.025 mg per tablet 360 tablet 1 Sig: TAKE ONE TABLET BY MOUTH BEFORE MEALS AND AT BEDTIME Date of last office visit with pcp: 12/26/2021 Future appt: 07/14/2022 Last 2 Encounter Wt Readings: Date: Wt: 05/01/2022 47.6 kg (105 lb) 11/18/2021 48.5 kg (107 lb) Previous labs/tests for medication: Blood Pressure: BUN (mg/dL) Date Value 06/25/2022 21 Sodium (mmol/L) Date Value 06/25/2022 140 Last 1 Encounter BP Readings: Date: BP: 05/01/2022 158/75 Liver Function: ALT (U/L) Date Value 06/25/2022 12 AST (U/L) Date Value 06/25/2022 20 Please advise. Thank you. Lety Coto RN documented in this encounter [facility] 06-29-2022 Miscellaneous Notes Call placed and message left on voicemail to call office does not use my chart Labs good but vitamin B12 low normal. Start OTC vitamin B12 1000 mcg daily. Thanks documented in this encounter [facility] 05-01-2022 Instructions Maxim Singh MD - 05/01/2022 9:40 AM EDT Get labs done at [facility] or [facility]. Will call with results. Will consider Forteo injections after review of labs. See me again in 12 months. 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 Had recent DEXA scan which was strikingly abnormal. Not surprised she has osteoporosis, has family history, , underweight. Non-smoker. No alcohol use. No adult fractures. Max height 5'6.75 Menarche at age 10, hysterectomy in 2011. Hot flashes about 11 years ago. History of GERD, has family history of esophageal cancer. History of ileum resection. Current Outpatient Medications on File Prior to Visit Medication Sig diphenoxylate-atropine (LOMOTIL) 2.5-0.025 mg per tablet TAKE ONE TABLET BY MOUTH BEFORE MEALS AND AT BEDTIME Blood Pressure Monitor 1 Each once daily as needed. cholecalciferol, vitamin D3, (VITAMIN D-3) 1000 unit cap Take 1 capsule by mouth once daily. THERAPEUTIC MULTIVITAMIN TAB Take one(1) tablet daily. ALLERGIES Allergen Reactions Sulfa (Sulfonamide * PAST MEDICAL HISTORY Diagnosis Date Diarrhea Dyskinesia of esophagus Esophageal reflux History of surgical removal of terminal ileum 06/10/2021 Loss of weight PAST SURGICAL HISTORY Procedure Laterality Date BREAST RIGHT FINE NEEDLE ASPIRATION 09/02/05 Right x 3 cysts COLONOSCOPY FLX DX W/COLLJ SPEC WHEN PFRMD 07/01/2012 Colonoscopy repeat 10 years ENTRC RESCJ SMALL INTESTINE 1 RESCJ & ANAST 10/14/06 ESOPHAGOGASTRODUODENOSCOPY TRANSORAL DIAGNOSTIC 01/23/2009 EGD ESOPHAGOGASTRODUODENOSCOPY TRANSORAL DIAGNOSTIC 07/01/2012 EGD INSJ NON-TUNNELED CENTRAL VENOUS CATH AGE 3 YR/> 10/14/06 TONSILLECTOMY PRIMARY/SECONDARY <AGE 10 Tonsillectomy TOTAL ABDOMINAL HYSTERECT W/WO RMVL TUBE OVARY Hysterectomy, appendectomy(ovaries remain) FAMILY HISTORY Problem Relation Age of Onset Osteoporosis Mother other (parkinsons) Mother other (renal disease) Maternal Grandfather Social History Tobacco Use Smoking status: Never Smoker Smokeless tobacco: Never Used Substance Use Topics Alcohol use: No Drug use: No Review of systems: Patient notes no weight changes, fever, fatigue, weakness, change in balance or sensation, visual problems, hearing changes, dizziness, trouble swallowing, nasal difficulties, shortness of breath, chest pain, change in exertional tolerance, foot or leg problems, skin lesions, abdominal pain, diarrhea, constipation, urinary problems, incontinence, back pain, joint pains, anxiety, depression, insomnia, menstrual difficulties, breast lesions/pain/mass. Remainder of review of systems was unremarkable. BP 158/75 Pulse 68 Resp 16 Ht 169.4 cm (5' 6.69 ) Wt 47.6 kg (105 lb) SpO2 100% BMI 16.60 kg/m General appearance: Well-appearing, underweight (BMI greater than 25) female, alert, in no acute distress, well-hydrated, well nourished. No kyphosis or lordosis. Skin: Skin color, texture, turgor normal, no suspicious rashes or lesions Head: normocephalic, no masses, lesions, tenderness or abnormalities Eyes: Anicteric sclera. Pupils are equally round. Extraocular movements are intact. Ears: not examined Nose/Sinuses: Nares normal. No drainage or sinus tenderness. Oropharynx: Lips, mucosa, and tongue normal, teeth and gums not examined. Neck: Supple, no adenopathy; no palpable thyroid enlargement. Lungs: Breathing unlabored. Heart: RRR. No ectopy Abdomen: deferred Extremities: No deformities, edema, skin discoloration, clubbing or cyanosis. Good capillary refill. Musculoskeletal: Spine range of motion not tested. Muscular strength intact, No joint swelling, deformity, or tenderness Peripheral pulses: Normal Neuro: Gait normal. Sensation grossly intact. DEXA bone densitometry in 12/2021 showed T-scores as follows: lumbar -3.4, hip -3.0, femoral neck -3.6. IMPRESSION: Osteoporosis with high risk of fracture (T-scores well below -2.5) - screen for hyperparathyroidism, hyperthyroidism, vitamin D deficiency Absent ileum - check vitamin B12 level Underweight - urged weight gain if possible (difficult with her GI issues) PLAN: CMP, TSH, free T4, 25-hydroxyvitamin D, intact PTH, and vitamin B12 Will call with results Discussed treatment option, will likely start with teriparatide (Forteo) See me again in 12 months Thank you for this kind consultation. Maxim Singh MD Consultation requested by DEBBIE Cordero for an opinion regarding osteoporosis. My final recommendations will be communicated back to the requesting physician by way of shared Medical record or letter to requesting physician via US mail. I spent 45 minutes in the visit, with more than 50% of the total hbsk-oa-levz time of the visit in counseling / coordination of care. documented in this encounter [facility] 03-03-2022 Miscellaneous Notes Pt requesting 3 refills on medication below. This is something she has to take and Dr. Gutierrez always gave her refills on this. Patient has been identified by name and date of : Yes Patient phones for refill(s): Pending Prescriptions Disp Refills DIPHENOXYLATE-ATROPINE 2.5 MG-0.025 MG TABLET 120 tablet 3 Sig: TAKE ONE TABLET BY MOUTH BEFORE MEALS AND AT BEDTIME BARBARA Class: C-V ALISON: No Date of last office visit in primary care: 11/18/21 next apt 05/18/22 Last 2 Encounter Wt Readings: Date: Wt: 11/18/2021 48.5 kg (107 lb) 06/10/2021 48.1 kg (106 lb) Previous labs/tests for medication: Not applicable Please advise. Thank you. Cassidy Rivera LPN documented in this encounter [facility] 12-23-2021 Miscellaneous Notes Patient notified of results and provider's instructions. Patient set up telephone call appointment with Louie on 12/26/2021 at 0220 to discuss information further. Please dial extension [phone]. Jennifer Talavera RN TC to pt, left message to return call to office. Christoph Juarez LPN ----- Message from Germania Cordero PA-C sent at 12/17/2021 8:07 PM EST ----- Please advise DEXA scan shows osteoporosis. T-score -3.6 left femoral neck, -3.4 lumbar spine. Options: start Fosamax, consult endo as fairly significant. Can schedule a call or visit to discuss if she wants. 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 ADHESIONS BOWEL 10/28/2006 05/18/2018 BREAST MASS (Left) 10/14/2005 05/18/2018 documented as of this encounter (statuses as of 05/01/2022) [facility] History of Past illness Narrative* Problem Noted Date Resolved Date Esophagitis, unspecified 07/01/2012 019 Dyskinesia of esophagus 01/23/2009 12/12/19 19 Acute gastritis without mention of hemorrhage 05/18/2018 Loss of weight 01/23/2009 05/01/2022 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 ADHESIONS BOWEL 10/28/2006 05/18/2018 BREAST MASS (Left) 10/14/2005 05/18/2018 documented as of this encounter (statuses as of 06/29/2022) [facility] History of Past illness Narrative* Problem Noted Date Resolved Date Esophagitis, unspecified 07/01/2012 019 Dyskinesia of esophagus 01/23/2009 12/12/19 19 Acute gastritis without mention of hemorrhage 05/18/2018 Loss of weight 01/23/2009 05/01/2022 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 ADHESIONS BOWEL 10/28/2006 05/18/2018 BREAST MASS (Left) 10/14/2005 05/18/2018 documented as of this encounter (statuses as of 07/01/2022) [facility] History of Past illness Narrative* Problem Noted Date Resolved Date Esophagitis, unspecified 07/01/2012 019 Dyskinesia of esophagus 01/23/2009 12/12/19 19 Acute gastritis without mention of hemorrhage 05/18/2018 Loss of weight 01/23/2009 05/01/2022 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 ADHESIONS BOWEL 10/28/2006 05/18/2018 BREAST MASS (Left) 10/14/2005 05/18/2018 documented as of this encounter (statuses as of 07/14/2022) [place] [id number] History of Past illness Narrative* Problem Noted Date Resolved Date Esophagitis, unspecified 07/01/2012 019 Dyskinesia of esophagus 01/23/2009 12/12/19 19 Acute gastritis without mention of hemorrhage 05/18/2018 Loss of weight 01/23/2009 05/01/2022 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 ADHESIONS BOWEL 10/28/2006 05/18/2018 BREAST MASS (Left) 10/14/2005 05/18/2018 documented as of this encounter (statuses as of 07/28/2022) [facility] History of Past illness Narrative* Problem Noted Date Resolved Date Esophagitis, unspecified 07/01/2012 019 Dyskinesia of esophagus 01/23/2009 12/12/19 19 Acute gastritis without mention of hemorrhage 05/18/2018 Loss of weight 01/23/2009 05/01/2022 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 ADHESIONS BOWEL 10/28/2006 05/18/2018 BREAST MASS (Left) 10/14/2005 05/18/2018 documented as of this encounter (statuses as of 08/06/2022) [facility] History of Past illness Narrative* Problem Noted Date Resolved Date Esophagitis, unspecified 07/01/2012 019 Dyskinesia of esophagus 01/23/2009 12/12/19 19 Acute gastritis without mention of hemorrhage 05/18/2018 Loss of weight 01/23/2009 05/01/2022 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 ADHESIONS BOWEL 10/28/2006 05/18/2018 BREAST MASS (Left) 10/14/2005 05/18/2018 documented as of this encounter (statuses as of 08/10/2022) [facility] History of Past illness Narrative* Problem Noted Date Resolved Date Esophagitis, unspecified 07/01/2012 02/04/2 019 Dyskinesia of esophagus 01/23/2009 12/12/19 19 Acute gastritis without mention of hemorrhage 05/18/2018 Loss of weight 01/23/2009 05/01/2022 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 ADHESIONS BOWEL 10/28/2006 05/18/2018 BREAST MASS (Left) 10/14/2005 05/18/2018 documented as of this encounter (statuses as of 10/26/2022) [address]24-2012 History of Past illness Narrative* Problem Noted Date Resolved Date Esophagitis, unspecified 07/01/2012 019 Dyskinesia of esophagus 01/23/2009 12/12/19 19 Acute gastritis without mention of hemorrhage 05/18/2018 Loss of weight 01/23/2009 05/01/2022 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 ADHESIONS BOWEL 10/28/2006 05/18/2018 BREAST MASS (Left) 10/14/2005 05/18/2018 documented as of this encounter (statuses as of 12/03/2022) [place] [id number] History of Past illness Narrative* Problem Noted Date Resolved Date Esophagitis, unspecified 07/01/2012 019 Dyskinesia of esophagus 01/23/2009 12/12/19 19 Acute gastritis without mention of hemorrhage 05/18/2018 Loss of weight 01/23/2009 05/01/2022 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 ADHESIONS BOWEL 10/28/2006 05/18/2018 BREAST MASS (Left) 10/14/2005 05/18/2018 documented as of this encounter (statuses as of 12/04/2022) [place] [id number] History of Past illness Narrative* Problem Noted Date Resolved Date Esophagitis, unspecified 07/01/2012 019 Dyskinesia of esophagus 01/23/2009 12/12/19 19 Acute gastritis without mention of hemorrhage 05/18/2018 Loss of weight 01/23/2009 05/01/2022 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 ADHESIONS BOWEL 10/28/2006 05/18/2018 BREAST MASS (Left) 10/14/2005 05/18/2018 documented as of this encounter (statuses as of 01/12/2023) [facility] History of Past illness Narrative* Problem Noted Date Resolved Date Esophagitis, unspecified 07/01/2012 019 Dyskinesia of esophagus 01/23/2009 12/12/19 19 Acute gastritis without mention of hemorrhage 05/18/2018 Loss of weight 01/23/2009 05/01/2022 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 ADHESIONS BOWEL 10/28/2006 05/18/2018 BREAST MASS (Left) 10/14/2005 05/18/2018 documented as of this encounter (statuses as of 02/20/2023) [facility] History of Past illness Narrative* Problem Noted Date Diagnosed Date Resolved Date Esophagitis, unspecified 07/01/201202/2019 Dyskinesia of esophagus 01/23/20090 02/2019 Acute gastritis without mention of hemorrhage 01/24/20 09 05/18/2018 Loss of weight 01/23/2009 05/01/2022 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 ADHESIONS BOWEL 10/28/2006 05/18/2018 BREAST MASS (Left) 10/14/2005 8 documented as of this encounter (statuses as of 07/15/2023) [facility] History of Past illness Narrative* Problem Noted Date Diagnosed Date Resolved Date Esophagitis, unspecified 07/01/201202/2019 Dyskinesia of esophagus 01/23/2009/0 02/2019 Acute gastritis without mention of hemorrhage 01/24/20 09 05/18/2018 Loss of weight 01/23/2009 05/01/2022 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 ADHESIONS BOWEL 10/28/2006 05/18/2018 BREAST MASS (Left) 10/14/2005 8 documented as of this encounter (statuses as of 09/23/2023) [facility] Diagnosis History of surgical removal of terminal ileum Other postprocedural status [facility] Diagnosis Other osteoporosis without current pathological fracture- Primary Injury of ileum, subsequent encounter Underweight [facility] this encounter [facility]* Diagnosis Vitamin B12 deficiency [facility] Diagnosis History of surgical removal of terminal ileum Other postprocedural status documented in this encounter [facility] note* Diagnosis Functional diarrhea- Primary History of surgical removal of terminal ileum Other postprocedural status Chronic diarrhea Diarrhea Gastroesophageal reflux disease without esophagitis Esophageal reflux Irritable bowel syndrome with diarrhea Irritable bowel syndrome Underweight Elevated blood pressure reading without diagnosis of hypertension Vitamin B12 deficiency Osteoporosis documented in this encounter [facility] note* Diagnosis Encounter for screening mammogram for breast cancer documented in this encounter [facility] note* Diagnosis Hand injury, right, initial encounter- Primary Fall, initial encounter Contusion of right wrist, initial encounter [facility]* Diagnosis Vitamin B12 deficiency- Primary Underweight Osteoporosis History of surgical removal of terminal ileum Other postprocedural status Chronic diarrhea Diarrhea Gastroesophageal reflux disease with esophagitis without hemorrhage documented in this encounter [facility] [facility]* Diagnosis History of surgical removal of terminal ileum Other postprocedural status documented in this encounter [facility]* Diagnosis History of surgical removal of terminal ileum- Primary Other postprocedural status Vitamin B12 deficiency Underweight Osteoporosis Chronic diarrhea Diarrhea Gastroesophageal reflux disease with esophagitis without hemorrhage Venous (peripheral) insufficiency Unspecified venous (peripheral) insufficiency Screening for lipid disorders Vitamin D deficiency Unspecified vitamin D deficiency documented in this encounter [facility] note* Diagnosis History of surgical removal of terminal ileum Other postprocedural status documented in this encounter [facility] for referral (narrative)* Diagnostic Procedure Only (Routine) - Authorized Specialty Diagnoses / Procedures Referred By Juan clemens Referred To Contact BR IMAGING Diagnoses Encounter for screening mammogram for breast cancer Procedures JO SCREENING SCREENING MAMMOGRAPHY BI 2-VIEW BREAST INC Germania Marquez PA-C [address] [place] [address] Br Imaging [facility] [place] [address] Referral ID Status Reason Start Date Expiration Date Visits Requested Visits Authorized [id number] Authorized Auto-Generat ed Referral 2 11/20/2023 1 [facility] Diagnostic Procedure Only (Routine) - Closed Specialty Diagnoses / Procedures Referred By Contac t Referred To Contact XR IMAGING Diagnoses Hand injury, right, initial encounter Fall, initial encounter Procedures XR WRIST GENERAL 3V PA/LAT/OBL RIGHT RADEX WRIST COMPLETE MINIMUM 3 VIEWS Jazmín Villaseñor MD [address] [place] [address] Xr Imaging Referral ID Status Reason Start Date Expiration Date V isits Requested Visits Authorized [id number] Closed Auto-Generate d Referral 12/03/2022 01/02/2024 1 1 [facility] Reason for Referral Specialty Diagnoses / Procedures Referred By Juan t Referred To Contact General Surgery Diagnoses Functional diarrhea History of surgical removal of terminal ileum Chronic diarrhea Procedures CONSULT TO GENERAL SURGERY OFFICE/OUTPATIENT [facility] MDM 60-74 MINUTES Germania Cordero PA-C [address] [place] [address] Referral ID Status Reason Start Date Expiration Date Visits Requested Visits Authorized [id number] Authorized PCP Requested Referral 07/14/2022 07/14/2023 1 1 Summary Purpose Family History No Family History Records Found Advance Directives No Advanced Directives Records Found Additional Source Comments Source Comments (unrecognize d section and content) In the event this informatio n is protected by the Federal Confidentiality of Alcohol and Drug Abuse Patient Records regulations: The Federal rules restrict any use of the information to criminally investigate or prosecute any alcohol or drug abuse patient.[facility] the event this information is protected by the Federal Confidentiality of Alcohol and Drug Abuse Patient Records regulations: The Federal rules restrict any use of the information to criminally investigate or prosecute any alcohol or drug abuse patient.[facility] the event this information is protected by the Federal Confidentiality of Alcohol and Drug Abuse Patient Records regulations: The Federal rules restrict any use of the information to criminally investigate or prosecute any alcohol or drug abuse patient.[facility] the event this information is protected by the Federal Confidentiality of Alcohol and Drug Abuse Patient Records regulations: The Federal rules restrict any use of the information to criminally investigate or prosecute any alcohol or drug abuse patient.[facility] the event this information is protected by the Federal Confidentiality of Alcohol and Drug Abuse Patient Records regulations: The Federal rules restrict any use of the information to criminally investigate or prosecute any alcohol or drug abuse patient.[facility] the event this information is protected by the Federal Confidentiality of Alcohol and Drug Abuse Patient Records regulations: The Federal rules restrict any use of the information to criminally investigate or prosecute any alcohol or drug abuse patient.[facility] the event this information is protected by the Federal Confidentiality of Alcohol and Drug Abuse Patient Records regulations: The Federal rules restrict any use of the information to criminally investigate or prosecute any alcohol or drug abuse patient.[facility] the event this information is protected by the Federal Confidentiality of Alcohol and Drug Abuse Patient Records regulations: The Federal rules restrict any use of the information to criminally investigate or prosecute any alcohol or drug abuse patient.[facility] the event this information is protected by the Federal Confidentiality of Alcohol and Drug Abuse Patient Records regulations: The Federal rules restrict any use of the information to criminally investigate or prosecute any alcohol or drug abuse patient.[facility] the event this information is protected by the Federal Confidentiality of Alcohol and Drug Abuse Patient Records regulations: The Federal rules restrict any use of the information to criminally investigate or prosecute any alcohol or drug abuse patient.[facility] the event this information is protected by the Federal Confidentiality of Alcohol and Drug Abuse Patient Records regulations: The Federal rules restrict any use of the information to criminally investigate or prosecute any alcohol or drug abuse patient.[facility] the event this information is protected by the Federal Confidentiality of Alcohol and Drug Abuse Patient Records regulations: The Federal rules restrict any use of the information to criminally investigate or prosecute any alcohol or drug abuse patient.[facility] the event this information is protected by the Federal Confidentiality of Alcohol and Drug Abuse Patient Records regulations: The Federal rules restrict any use of the information to criminally investigate or prosecute any alcohol or drug abuse patient.[facility] the event this information is protected by the Federal Confidentiality of Alcohol and Drug Abuse Patient Records regulations: The Federal rules restrict any use of the information to criminally investigate or prosecute any alcohol or drug abuse patient.[facility] the event this information is protected by the Federal Confidentiality of Alcohol and Drug Abuse Patient Records regulations: The Federal rules restrict any use of the information to criminally investigate or prosecute any alcohol or drug abuse patient.[facility] Reason for Visit (unrecogniz ed section and content) Reason Comments New Patient Osteoporosis Specialty Diagnoses / Procedures Referred By Contac t Referred To Contact Diagnoses Other osteoporosis without current pathological fracture Procedures CONSULT TO ENDO METABOLIC BONE OFFICE/OUTPATIENT NEW HIGH MDM 60-74 MINUTES Germania Cordero PA-C [address] [place] [address] Referral ID Status Reason Start Date Expiration Date V isits Requested Visits Authorized [id number] Closed PCP Requested Referral 12/26/2021 12/26/2022 1 1 Reason Comments Results Reason Onset Date Comments Refill Request 06/30/2022 Reason Comments Recheck Reason Comments Patient Question Reason Comments PA--PROLIA 2021 Reason Comments Results DEXA Reason Comments Fall Reason Comments 6 Month Exam Reason Onset Date Comments Refill Request 02/19/2023 Reason Comments Refill Request Care Teams (unrecognized sec tion and content) 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 [place] [address] PCP - General Family Practice 10/29/21 Sole Sewer Hand Relationship Specialty Start Date End Date Germania Cordero PA-C [address] [facility] [place] [address] PCP - General Family Practice 10/29/21 Sole Sewer Hand Relationship Specialty Start Date End Date Germania Cordero PA-C [address] [facility] [place] [address] PCP - General Family Practice 10/29/21 Sole Sewer Hand Relationship Specialty Start Date End Date Germania Cordero PA-C [address] [facility] [place] [address] PCP - General Family Medicine 10/29/21 Sole Sewer Hand Relationship Specialty Start Date End Date Germania Cordero PA-C [address] [facility] [place] [address] PCP - General Family Medicine 10/29/21 Sole Sewer Hand Relationship Specialty Start Date End Date Germania Cordero PA-C [address] [facility] [place] [address] PCP - General Family Medicine 10/29/21 Sole Sewer Hand Relationship Specialty Start Date End Date Germania Cordero PA-C [address] [facility] [place] [address] PCP - General Family Medicine 10/29/21 Sole Sewer Hand Relationship Specialty Start Date End Date Germania Cordero PA-C [address] [facility] [place] [address] PCP - General Family Medicine 10/29/21 Sole Sewer Hand Relationship Specialty Start Date End Date Germania Cordero PA-C [address] [place] [address] PCP - General Family Medicine 10/29/21 Sole Sewer Hand Relationship Specialty Start Date End Date Germania Cordero PA-C [address] [place], [place] [id number] PCP - General [facility] 10/29/21 Sole Sewer Hand Relationship Specialty Start Date End Date Germania Cordero PA-C [address] [place], [place] [address] PCP - General Family Medicine 10/29/21 INFORMATION SOURCE (unrecogn ized section and content) FOR RECORDS PERTAINING TO PATIENTS WHO ARE OR HAVE BEEN ENROLLED IN A CHEMICAL DEPENDENCY/SUBSTANCEABUSE PROGRAM, SOME INFORMATION MAY BE OMITTED. This clinical summary was aggregated from multiple sources. Caution should be exercised in using it in the provision of clinical care. This summary normalizes information from multiple sources, and as a consequence, information in this document may materially change the coding, format and clinical context of patient data. In addition, data may be omitted in some cases. CLINICAL DECISIONS SHOULD BE BASED ON THE PRIMARY CLINICAL RECORDS. [employer] [facility]. provides no warranty or guarantee of the accuracy or completeness of information in this document.
== END | disposition home or self-care (01) ==
LOC: OPBI 07:51
PROVIDERS: PCP Physician Assistant; Referring Provider Obstetrics & Gynecology; Visit Provider Obstetrics & Gynecology
DX: Z12.31 Encounter for screening mammogram for malignant neoplasm of breast (principal)
CPT/HCPCS: 77063; 77067

== ENCOUNTER → 2024-12-04 | Outpatient (CLI) | payer OTHER, BC, SELFPAY ==
--- NOTE | 2024-12-04 07:52 | BI_ITS ---
MAMMOGRAPHY - BILATERAL SCREENING REASON FOR EXAM: Female, 64 years old. Routine annual screening examination. PERTINENT HISTORY: Non-contributory. TECHNIQUE: Digital bilateral breast jose f (3D mammographic acquisition) in the CC and MLO projections. 2-D mediolateral oblique (MLO) and craniocaudad (CC) views of both breasts were obtained. CAD: Full Field Digital Mammography with Computer Added Detection was performed. COMPARISON: Comparison is made with prior study dated December 02, 2023 and December 01, 2022. FINDINGS: Breast Composition: The breasts are extremely dense, which lowers the sensitivity of mammography. There are no dominant masses or suspicious calcifications. No other significant abnormalities are identified. There has been no significant change since the prior study. BI/SCRN MAMM (CAD)W/JOSE F BILAT IMPRESSION: Stable bilateral screening mammogram. Yearly follow-up mammogram recommended. (A) ASSESSMENT CATEGORY: BIRADS Category 1: Negative. A letter regarding these results will be sent to the patient by the facility within 30 days. Approximately 10% of breast cancers are not detected by mammography. A normal mammogram should not delay biopsy of a clinically suspicious abnormality. [id number] Electronically Signed: Cricket Rinaldi MD at 8:54 EST ,
== END | disposition home or self-care (01) ==
LOC: OPBI 07:52
PROVIDERS: PCP Registered Nurse; Referring Provider Obstetrics & Gynecology; Visit Provider Obstetrics & Gynecology
DX: Z12.31 Encounter for screening mammogram for malignant neoplasm of breast (principal)
CPT/HCPCS: 77063; 77067